=== PATIENT | male | born 1945 | race Caucasian/White ===

== ENCOUNTER 2017-05-14 11:28 | Inpatient (IN) | payer OTHER, MEDICAID ==
[~2017-05-14] VITALS: Ht 177.8 cm; Wt 70.3 kg
[~2017-05-14 11:28] MED LIST: GLU500 PO
[2017-05-14 12:07] VITALS: BP 135/76
[2017-05-14] MEDS ORDERED: NACL 0.9% 1,000 ML IV SCH (12:38)
--- NOTE | 2017-05-14 12:38 | NUR ---
[address] street in EDM - 05/14/17 at 1239 by BILLIE PATIENT TAKEN TO CHAIR/OUTSIDE TRIAGE. SEEN AND ASSESS BY DR. SENA.
[2017-05-14] MEDS ORDERED: ACETAMINOPHEN 325 MG TAB PO PRN (12:40)
[2017-05-14] MEDS ORDERED: HYDROcodone/APAP 7.5/325 MG 1 TAB PO PRN (12:40)
[2017-05-14] MEDS ORDERED: ONDANSETRON 4 MG/2 ML VIAL IVP PRN (12:40)
--- NOTE | 2017-05-14 12:45 | NUR ---
resting at this time with no s/s of distress pt hooked up to monitor vitals stable hob elevated call light in reach awating to see
[2017-05-14] MEDS ORDERED: MAG400 GT (13:28)
[2017-05-14] MEDS ORDERED: METO25TA GT (13:28)
[2017-05-14] MEDS ORDERED: DILT180C88 GT (13:28)
[2017-05-14] MEDS ORDERED: VITA1TAB44 GT (13:28)
[2017-05-14] MEDS ORDERED: LANTUS SUBQ (13:28)
[2017-05-14] MEDS ORDERED: LANS15EC28 GT (13:28)
[2017-05-14] MEDS ORDERED: FURO-572 GT (13:28)
[2017-05-14 14:08] LABS: BASOPHILS # (AUTO) 0.2 K/uL (0.00-0.22); EOSINOPHILS # (AUTO) 0.3 K/uL (0-0.4); HEMATOCRIT 36.5 % (36-52); HEMOGLOBIN 12.2 g/dL (12.0-18.0); LYMPHOCYTES # (AUTO) 1.9 K/uL (2.0-11.5); MEAN CORPUSCULAR HEMOGLOBIN 32 pg (27-31); MEAN CORPUSCULAR HGB CONC 33 g/dL (33-37); MEAN CORPUSCULAR VOLUME 97 fL (80-94); MONOCYTES # (AUTO) 0.6 K/uL (0.8-1.0); NEUTROPHILS # (AUTO) 2.4 K/uL (1.8-7.7); PLATELET COUNT (AUTO) 246 K/uL (140-450); RED BLOOD CELL COUNT(AUTO) 3.79 MIL/uL (4.20-6.10); RED CELL DISTRIBUTION WIDTH 12.5 % (11.6-13.7); WHITE BLOOD COUNT (AUTO) 5.4 K/uL (4.8-10.8)
[2017-05-14 14:32] LABS: PROTHROMBIN TIME 10.2 secs (10.8-13.4)
[2017-05-14 14:42] LABS: ANION GAP 10.2 (8-16); CARBON DIOXIDE 31.5 mmol/L (21-32); CREATININE 1.4 mg/dL (0.7-1.3); POTASSIUM 3.7 mmol/L (3.5-5.1)
--- NOTE | 2017-05-14 14:45 | NUR ---
pt transfered to floor tolerated well nurse at bedside report given pt with noted redness to left eye nurseinformed of pt having conjectivits per report no noted drops on may from [facility] angelic mcintosh at bedside was informed by nurse in er no noted orders at this time still awating urine.
--- NOTE | 2017-05-14 14:50 | NUR ---
Admitted from ER , with chief complaint of G-TUBE PULLED , 71 y/o ,Male, Cooperative, AAOX4, NO S/S OF ACUTE DISTRESS. PT DENIES PAIN AT THIS TIME.IV SITE PATENT AND INTACT. G-TUBE SITE RED WITH SEROUS MILD DRAINAGE. PT PT oriented to call light, bed, phone,television, bathroom, smoking policy, visiting hours, procedures, ID bracelet on. Belongings list checked. CALL LIGHT WITHIN REACH. SAFETY MEASURES ENSURED. CALL LIGHT WITHIN REACH. SAFETY MEASURES ENSURED. WILL CONTINUE TO MONITOR.
[2017-05-14 14:53] VITALS: BP 114/56
[2017-05-14] MEDS ORDERED: NITROGLYCERIN 0.4 MG TAB SL PRN (15:55)
[2017-05-14] MEDS ORDERED: INSULIN LISPRO SLIDING SCALE 100 UNITS/ML VIAL SUBQ PRN (15:55)
[2017-05-14] MEDS: BLOOD GLUCOSE MONITORING 1 DEV DEV FS SCH ×2 (17:14→21:00)
[2017-05-14] MEDS: DEXT 5% /NACL 0.9% 1,000 ML IV SCH (18:22)
[2017-05-14 18:44] LABS: CHOL/HDL RATIO 2.6 (1-4.5); FREE T4 (FREE THYROXINE) 1.17 ng/dL (0.76-1.46); MAGNESIUM 1.9 mg/dL (1.8-2.4); PHOSPHORUS 4.1 mg/dL (2.5-4.9); THYROID STIMULATING HORMONE 2.15 uIU/mL (0.34-3.74)
--- NOTE | 2017-05-14 20:10 | NUR ---
PT IN BED SHOWING NO S/S OF ACUTE DISTRESS. PT DENIES PAIN AT THIS TIME. IV SITE PATENT AND INTACT. G-TUBE SITE RED. PT oriented to call light, bed, phone,television, bathroom, smoking policy, visiting hours, procedures, ID bracelet on. Bed in low position.
[2017-05-14] MEDS: INSULIN LANTUS 100 UNITS/ML 10 ML VIAL SUBQ SCH (21:00)
[2017-05-14] MEDS ORDERED: DILTIAZEM HCL 180 MG GT SCH (21:00)
--- NOTE | 2017-05-14 22:05 | NUR ---
RECEIVED CRITICAL LAB FOR TROPONIN AT 2.36 COUNT IS TRENDING DOWN FROM PREVIOUS TROP AT 2.55
[2017-05-14] MEDS: DOCUSATE 100 MG/10 ML UDC PO SCH (22:12)
[2017-05-14] MEDS: DILTIAZEM 60 MG TAB GT SCH (22:13)
[2017-05-15 01:36] VITALS: BP 135/88
--- NOTE | 2017-05-15 01:39 | NUR ---
RECEIVED REPORT FROM DAY SHIFT RN. PATIENT A/O X1 IN BED RESTING. BED IN LOW POSITION, 2 RAILS UP, CALL LIGHT WITHIN REACH.
--- NOTE | 2017-05-15 01:41 | NUR ---
HELD PATIENTS LANTUS DOSE AT 2100 FOR 20 UNITS. BS AT 95.
--- NOTE | 2017-05-15 01:45 | NUR ---
PATIENT IS SLEEPING, NO S/S OF DISTRESS NOTED, RESPIRATION EVEN AND UNLABORED, CALL LIGHT WITHIN REACH, SAFETY MEASURE ENSURED, WILL CONTINUE TO MONITOR.
[2017-05-15] MEDS: LANSOPRAZOLE 30 MG CAPDR GT SCH (05:54)
[2017-05-15] MEDS ORDERED: LANSOPRAZOLE 20 MG GT SCH (06:30)
[2017-05-15 07:20] LABS: BASOPHILS # (AUTO) 0.1 K/uL (0.00-0.22); BASOPHILS % (AUTO) 2.2 % (0.0-2.0); EOSINOPHILS # (AUTO) 0.4 K/uL (0-0.4); EOSINOPHILS % (AUTO) 6.9 % (0.0-4.0); HEMATOCRIT 33.7 % (36-52); HEMOGLOBIN 11.7 g/dL (12.0-18.0); LYMPHOCYTES # (AUTO) 1.8 K/uL (2.0-11.5); LYMPHOCYTES % (AUTO) 33.3 % (20.5-51.1); MEAN CORPUSCULAR HEMOGLOBIN 35 pg (27-31); MEAN CORPUSCULAR HGB CONC 35 g/dL (33-37); MEAN CORPUSCULAR VOLUME 100 fL (80-94); MONOCYTES # (AUTO) 0.7 K/uL (0.8-1.0); MONOCYTES % (AUTO) 12.1 % (1.7-9.3); NEUTROPHILS # (AUTO) 2.5 K/uL (1.8-7.7); NEUTROPHILS % (AUTO) 45.5 % (42.2-75.2); PLATELET COUNT (AUTO) 203 K/uL (140-450); RED BLOOD CELL COUNT(AUTO) 3.38 MIL/uL (4.20-6.10); RED CELL DISTRIBUTION WIDTH 12.3 % (11.6-13.7); WHITE BLOOD COUNT (AUTO) 5.5 K/uL (4.8-10.8)
--- NOTE | 2017-05-15 07:24 | NUR ---
GAVE PATIENT REPORT AT BEDSIDE TO DAY NURSE, PATIENT ENDORSED IN STABLE CONDITION.
[2017-05-15] MEDS: BLOOD GLUCOSE MONITORING 1 DEV DEV FS SCH ×4 (07:30→21:00)
[2017-05-15 07:56] LABS: MAGNESIUM 1.8 mg/dL (1.8-2.4); PHOSPHORUS 3.6 mg/dL (2.5-4.9)
[2017-05-15 08:00] VITALS: BP 128/72
--- NOTE | 2017-05-15 08:00 | NUR ---
PT RECEIVED IN BED. NAD. SHIFT ASSESSMENT DONE AND DOCUMENTED. PLAN OF CARE DISCUSSED. PT HAS NO COMPLAINTS AT THIS TIME.
--- NOTE | 2017-05-15 08:48 | NUR ---
PATIENT HAS BEEN SCREENED AND CATEGORIZED HIGH NUTRITION RISK. PATIENT WILL BE SEEN WITHIN 1-2 DAYS OF ADMISSION. 05/14/18-05/15/[address]
[2017-05-15] MEDS: DILTIAZEM 60 MG TAB GT SCH ×2 (09:00→21:00)
[2017-05-15] MEDS: FUROSEMIDE 40 MG/5 ML ORAL SOL UDC GT SCH (09:00)
[2017-05-15] MEDS: DOCUSATE 100 MG/10 ML UDC PO SCH ×2 (09:00→21:00)
[2017-05-15] MEDS: METOPROLOL 50 MG TAB GT SCH (09:00)
[2017-05-15 09:33] LABS: ANION GAP 13.8 (8-16); CARBON DIOXIDE 27.6 mmol/L (21-32); CREATININE 1.3 mg/dL (0.7-1.3); POTASSIUM 3.4 mmol/L (3.5-5.1)
--- NOTE | 2017-05-15 12:42 | NUR ---
05/15/2017 RD INITIAL ASSESSMENT COMPLETED PLEASE REFER TO NUTRITION ASSESSMENT UNDER CARE ACTIVITY FOR ESTIMATED NUTRITIONAL NEEDS. CONTINUE NPO MEDICALLY APPROPRIATE INITIATE TUBE FEEDS ONCE G-TUBE REPLACED, CONSIDER: DIABETISOURCE AC @ 60 ML/HR. THIS WILL PROVIDE 1728 KCALS AND 86 GM PRO/DAY TO MEET 97% EST ENERGY AND 100% EST PRO NEEDS PER DAY. RD TO FOLLOW-UP IN 2-3 DAYS PATIENT IS HIGH RISK. GEMA CROFT RD Addendum: 05/15/17 at [address] SPOKE WITH YAW ROSAS, DISCUSSED RECOMMENDATION FOR TF ONCE PT NO LONGER NPO, RN WILL F/UP WITH DOCTOR ONCE DIET IS TO BE ADVANCED
[2017-05-15] MEDS: DEXT 5% /NACL 0.9% 1,000 ML IV SCH (14:12)
--- NOTE | 2017-05-15 14:30 | NUR ---
FAXED INITIAL REVIEW TO NIKKIE ARVIND [phone] PHONE ADEOLA [phone]
--- NOTE | 2017-05-15 15:42 | NUR ---
05/15/2017 RD INITIAL ASSESSMENT COMPLETED PLEASE REFER TO NUTRITION ASSESSMENT UNDER CARE ACTIVITY FOR ESTIMATED NUTRITIONAL NEEDS. CONTINUE NPO MEDICALLY APPROPRIATE INITIATE TUBE FEEDS ONCE G-TUBE REPLACED, CONSIDER: DIABETISOURCE AC @ 60 ML/HR. THIS WILL PROVIDE 1728 KCALS AND 86 GM PRO/DAY TO MEET 97% EST ENERGY AND 100% EST PRO NEEDS PER DAY. RD TO FOLLOW-UP IN 2-3 DAYS PATIENT IS HIGH RISK. GEMA MOSQUEDA RD
[2017-05-15 16:00] VITALS: BP 149/87
--- NOTE | 2017-05-15 16:00 | NUR ---
PT ABRUPTLY ASKED TO STOP PERFORMING ECHO DURING STUDY. NURSE ASKED IF ECHO CAN BE CONTINUED AND PT AGREED. DURING 2ND ATTEMPT PT ASKED TO STOP AGAIN. ECHO STUDY IS PARTIALLY COMPLETE.
--- NOTE | 2017-05-15 17:00 | NUR ---
PT BLOOD SUGAR IS 53. PT REMAINS ALERT AND ORIENTED TO NAME, PLACE AND SITUATION. ASYMPTOMATIC. WILL ADMINISTER D50 PER PROTOCOL.
[2017-05-15] MEDS: DEXTROSE 50% 50 ML SYR IVP PRN (17:04)
[2017-05-15] MEDS ORDERED: POTASSIUM CHL 30 MEQ/ D5-1/2NS 1,000 ML IV SCH (18:20)
--- NOTE | 2017-05-15 19:23 | NUR ---
PT RECEIVED IN BED. SHIFT ASSESSMENT DONE AND DOCUMENTED. PLAN OF CARE DISCUSSED. PT HAS NO COMPLAINTS AT THIS TIME.
[2017-05-15 20:13] VITALS: BP 140/77
[2017-05-15] MEDS: INSULIN LANTUS 100 UNITS/ML 10 ML VIAL SUBQ SCH (21:00)
--- NOTE | 2017-05-15 22:03 | NUR ---
2100 MEDICATION WITHHELD. PT IS NPO AND UNABLE TO SWALLOW. LANTUS HELD FOR BS OF 70
[2017-05-15] MEDS: MUPIROCIN 2% OINT 22 GM TUBE TP SCH (22:08)
[2017-05-15] MEDS: CHLORHEXADINE GLUC 2% CLOTH TP SCH (22:16)
--- NOTE | 2017-05-15 22:52 | NUR ---
PT TURNED AND REPOSITIONED. NO S/S OF DISTRESSED, STATES HE IS WELL AND COMFORTABLE.
--- NOTE | 2017-05-15 23:58 | NUR ---
PATIENT ASLEEP IN BED. NO S/S OF DISTRESS NOTED
--- NOTE | 2017-05-16 02:41 | NUR ---
PT ATTEMPTED TO GET OUT OF BED. gAVE BED BATH AND REPOSITIONED TO COMFORTABLE POSITION. WILL CONTINUE TO MONITOR PATIENT. VERBALIZED NO S/S OF DISCOMFORT.
[2017-05-16] MEDS: LANSOPRAZOLE 30 MG CAPDR GT SCH (05:48)
[2017-05-16] MEDS: BLOOD GLUCOSE MONITORING 1 DEV DEV FS SCH ×4 (06:33→20:43)
[2017-05-16] MEDS: DEXTROSE 50% 50 ML SYR IVP PRN (06:36)
[2017-05-16 07:10] LABS: ANION GAP 13.6 (8-16); CARBON DIOXIDE 29.6 mmol/L (21-32); CREATININE 1.2 mg/dL (0.7-1.3); POTASSIUM 3.2 mmol/L (3.5-5.1)
--- NOTE | 2017-05-16 07:10 | NUR ---
ASSUMED CONTINUITY OF CARE. NO SIGNS AND SYMPTOMS OF ACUTE DISTRESS NOTED. INITIAL ASSESSMENT DONE. PT. NON-COMPLIANT AND AGGRESSIVE AT TIMES. REFUSED BLOOD SUGAR CHECK. EXPLAINED DIAGNOSIS, PLAN OF CARE, PAIN MANAGEMENT TEACHING, CONTACT ISOLATION PRECAUTION, USE OF CALL LIGHT/BED/TV/BATHROOM. VERBALIZED UNDERSTANDING. FALL PRECAUTION APPLIED. CALL LIGHT WITHIN REACH.
--- NOTE | 2017-05-16 07:20 | NUR ---
PT BS 57 GAVE D50. PT WAS VERY AGITATED AND COMBATIVE. 3 NURSES ASSISTED IN HOLDING PT DOWN HE WAS VERY CONFUSED AND AGITATED. ATTEMPTED TWICE TO RECHECK BS AND PATIENT REMAINS COMBATIVE AND REFUSING. CHARGE NURSE AND DAY SHIFT NURSE ENDORSED TO FOLLOW UP.
--- NOTE | 2017-05-16 07:22 | NUR ---
GAVE PATIENT REPORT AT BEDSIDE TO DAY NURSE, PATIENT ENDORSED WITHOUT ANY S/S OF DISCOMFORT. NURSE TO FOLLOW UP BS RECHECK
--- NOTE | 2017-05-16 07:25 | NUR ---
Patient's Plan of Care was discussed and reviewed with REAL PROPERTY APPRAISER: THUY.
--- NOTE | 2017-05-16 07:45 | NUR ---
NON-COMPLIANT, REFUSED BLOOD SUGAR CHECK. AWAKE, ALERT, AND ORIENTED X2. NO ACUTE DISTRESS NOTED. INFORMED CHARGE NURSE PENNY FLORES.
[2017-05-16 08:00] VITALS: BP 176/92
--- NOTE | 2017-05-16 08:45 | NUR ---
DR. HEBERT LAN CALLED BACK, INFORMED OF PT. BP 176/92 AT 0800, K 3.2, BS 57 AND WAS GIVEN D50 BUT REFUSED TO RE-CHECK BLOOD SUGAR, AND REFUSED TO CHECK AGAIN VITALS SIGN. INFORMED CHARGE NURSE PENNY FLORES.
[2017-05-16] MEDS: METOPROLOL 50 MG TAB GT SCH (08:50)
[2017-05-16] MEDS: DILTIAZEM 60 MG TAB GT SCH ×2 (08:50→20:44)
[2017-05-16] MEDS: FUROSEMIDE 40 MG/5 ML ORAL SOL UDC GT SCH (08:50)
[2017-05-16] MEDS: DOCUSATE 100 MG/10 ML UDC PO SCH ×2 (08:51→20:44)
[2017-05-16] MEDS ORDERED: LABETALOL 100 MG/20 ML VIAL IVP SCH ×2 (08:53→12:41)
--- NOTE | 2017-05-16 08:55 | NUR ---
CALLED PHARMACY AND ASKED FOR LABETALOL 10 MG IVP FOR HIGH BP. PER PHARMACY THEY WILL SEND MEDS LATER.
[2017-05-16] MEDS ORDERED: POTASSIUM CHLORIDE IV SCH (09:00)
[2017-05-16] MEDS ORDERED: NACL 0.9% IV SCH (09:00)
[2017-05-16] MEDS ORDERED: LIDOCAINE IV SCH (09:00)
--- NOTE | 2017-05-16 10:38 | NUR ---
STILL NON-COMPLIANT. REFUSED CHECK OF VS. NO ACUTE DISTRESS NOTED.
--- NOTE | 2017-05-16 11:50 | NUR ---
DR. HELM CAME, REVIEWED PT. CHART AND SEEN PT.. INFORMED DR. HELM ABOUT PT. LATEST BS 61, AND BP AT 0800 176/92.
[2017-05-16 12:00] VITALS: BP 166/86
[2017-05-16] MEDS: POTASSIUM CHL 20 MEQ / DEXT 5% 1,000 ML IV SCH (12:12)
--- NOTE | 2017-05-16 12:23 | NUR ---
CALLED LAN DEVI AND INFORMED OF PT. BP 166/86 AT 1200. GOT T.O., READ BACK AND VERIFIED. INFORMED CHARGE NURSE PENNY FLORES.
--- NOTE | 2017-05-16 12:45 | NUR ---
LAN DEVI CAME, SEEN PT. AND REVIEWED PT. CHART.
--- NOTE | 2017-05-16 13:05 | NUR ---
I call [facility] (SNF) spoke to RN Clementine from admissions about Patient's current status, gather and confirm his information. Per Clementine staff Patient is on a 7 day skilled bed hold and he is able to returned to facility when he is stable and ready to discharge from [facility]. I confirm Patient's sister information, thank Clementine for her information and ended the call.
--- NOTE | 2017-05-16 13:47 | NUR ---
WENT TO RADIOLOGY VIA [facility]. IN STABLE CONDITION.
--- NOTE | 2017-05-16 14:17 | NUR ---
BACK FROM RADIOLOGY VIA [facility]URNEY. IN STABLE CONDITION. KEEP COMFORTABLE ON BED.
--- NOTE | 2017-05-16 14:23 | NUR ---
CALLED DR. HELM AND INFORMED THAT PT. REFUSED XR ESOPHAGEAL SPEECH EVAL PER SPEECH THERAPIST. GOT T.O. OF EGD WITH PEG PLACEMENT, READ BACK AND VERIFIED. INFORMED CHARGE NURSE PENNY FLORES.
--- NOTE | 2017-05-16 14:39 | NUR ---
DEPUTY CITY CLERK note (MBSS completed as far as pt willing to participate) [id number]. Modified Barium Swallow Study completed as far as pt willing to participate, please see evaluation report for details. DEPUTY CITY CLERK provided pt with education regarding purpose of evaluation. Pt unable to demonstrate ability to benefit from education provided. Pt became verbally abusive and refused participation in MBSS after 1/2 teaspoon of thin barium. Recommend: 1) Strict NPO (oral cares only) 2) consider alternative method(s) of nutrition/hydration/medication vs hospice/comfort measures, as appropriate 3) no further DEPUTY CITY CLERK intervention indicated at this time. Physician may reorder if pt becomes compliant and willing to participate, as appropriate. G-codes: [id number] [facility] NOMS level 2. PVE for d/w set up and charger and RN (Ry) prior to and d/w RN (Ry) following MBSS completion.
[2017-05-16] MEDS ORDERED: LABETALOL 100 MG/20 ML VIAL IVP PRN (14:40)
--- NOTE | 2017-05-16 14:40 | NUR ---
RAMIRO DEVI CAME, INFORMED PT. BP AT 0800 176/92, 1200 166/86, AND AT BP NOW 166/83, AND LATEST LABETALOL 10 MG. IVP ADMINISTRATION WAS 1326. PER RAMIRO DEVI JUST RE-CHECK AT 1600 AND GIVE PRN MEDICINE. INFORMED CHARGE NURSE PENNY FLORES. ALSO INFORMED RAMIRO DEVI THAT DR. HELM ORDERED EGD WITH PEG PLACEMENT.
--- NOTE | 2017-05-16 14:42 | NUR ---
BS 69. NO ACUTE DISTRESS NOTED. A & O X2. INFORMED CHARGE NURSE PENNY FLORES.
--- NOTE | 2017-05-16 15:00 | NUR ---
CALLED PT. -LA LUU AT REGARDING TELEPHONE CONSENT FOR EGD WITH PEG PLACEMENT THAT WAS ORDERED BY DR. HELM. LEFT MESSAGE AND CALL BACK NUMBER. INFORMED CHARGE NURSE PENNY FLORES.
--- NOTE | 2017-05-16 15:03 | NUR ---
Clinical concurrent review faxed to [facility] at [phone]
--- NOTE | 2017-05-16 15:38 | NUR ---
CALLED PT. -JACKELYN LUU AT REGARDING TELEPHONE CONSENT FOR EGD WITH PEG PLACEMENT THAT WAS ORDERED BY DR. HELM. LEFT MESSAGE AND CALL BACK NUMBER. INFORMED CHARGE NURSE PENNY FLORES.
[2017-05-16 16:00] VITALS: BP 167/111
--- NOTE | 2017-05-16 16:24 | NUR ---
CALLED LAN DEVI AT , INFORMED DR. HELM ORDER OF EGD WITH PEG PLACEMENT DUE TO PT. REFUSAL OF XR ESOPHAGEAL SPEECH EVAL, ALSO INFORMED OF LATEST BP 167/111 AT 1600 AND WILL GIVE PRN MEDICINE. NO ORDER RECEIVED.
--- NOTE | 2017-05-16 16:44 | NUR ---
CALLED AGAIN PT. SISTER LA LUU AT [phone] REGARDING TELEPHONE CONSENT FOR EGD WITH PEG PLACEMENT ORDERED BY DR. HELM. LEFT MESSAGE AND CALL BACK NUMBER. INFORMED CHARGE NURSE PENNY FLORES.
--- NOTE | 2017-05-16 16:58 | NUR ---
PT. SISTER -JUSJACKELYN CALLED BACK, INFORMED OF PT. EGD WITH PEG PLACEMENT THAT WAS ORDERED BY DR. HELM AND ASKED FOR TELEPHONE CONSENT. PT. SISTER REFUSED TO GIVE TELEPHONE CONSENT FOR PT. PROCEDURE. INFORMED CHARGE NURSE PENNY FLORES
--- NOTE | 2017-05-16 17:33 | NUR ---
IV ON LEFT HAND #22 ACCIDENTALLY PULLED OUT. INSERTED IV ON RIGHT FOREARM WITH GAUGE #22. TOLERATED WELL. NO C/O PAIN.
--- NOTE | 2017-05-16 17:35 | NUR ---
CALLED DR. HELM AT REGARDING PT. REFUSAL TO SIGN CONSENT AND PT. SISTER -JACKELYN LUU REFUSAL TO SIGN TELEPHONE CONSENT FOR EGD WITH PEG PLACEMENT. LEFT MESSAGE AND CALL BACK NUMBER. INFORMED CHARGE NURSE PENNY FLORES.
[2017-05-16 17:39] VITALS: BP 162/86
--- NOTE | 2017-05-16 17:55 | NUR ---
CHARGE NURSE CALLED LAN DEVI AND ASKED INCREASE RATE OF IVF.
[2017-05-16] MEDS: MUPIROCIN 2% OINT 22 GM TUBE TP SCH (18:40)
[2017-05-16] MEDS: CHLORHEXADINE GLUC 2% CLOTH TP SCH (18:40)
--- NOTE | 2017-05-16 19:18 | NUR ---
BEDSIDE REPORT GIVEN TO KATIE FLORES. IVF INFUSING WELL. IN STABLE CONDITION. ALSO ENDORSED ABOUT PT. REFUSAL TO SIGN CONSENT FOR EGD WITH PEG PLACEMENT ORDERED BY DR. HELM.
--- NOTE | 2017-05-16 19:19 | NUR ---
RECEIVED BEDSIDE REPORT FROM DAY SHIFT NURSE MARU CADE, PT STABLE, NO DISTRESS NOTED, IV TO R FA 22G RUNNING D5 KCL 20MEQ @100ML/HR, INFUSING WELL, PT ON ROOM AIR NO SOB, INITIAL ASSESSMENT DONE, ALL SAFETY PRECAUTION MET, WILL CONTINUE TO MONITOR.
--- NOTE | 2017-05-16 19:25 | NUR ---
BEDSIDE REPORT GIVEN TO JESUS FLORES. IN STABLE CONDITION. Addendum: 05/16/17 at 1926 by Himanshu Gould LVN WRONG ENTRY: ENTERED AT WRONG PT..
--- NOTE | 2017-05-16 19:58 | NUR ---
CHECKED PT BP, 172/89, HR 74, CALLED DR. ANUP Barriga REGARDING PT BP, STATED TO TRANSFER PT TO TELEMETRY, AND TO ORDER HYDRALAZINE 10MG IVP Q4 HR PRN SBP >150. WILL PUT IN ORDERS AND CONTINUE WITH ORDERS.
[2017-05-16 20:00] VITALS: BP 172/89
[2017-05-16] MEDS: hydrALAZINE 20 MG/ML VIAL IVP PRN (20:40)
--- NOTE | 2017-05-16 20:40 | NUR ---
DUE MEDICATION WAS NOT GIVEN DUE TO PT NPO STATUS AND NO GTUBE, HYDRALAZINE GIVEN PER ORDER BP 172/89, PT TOLERATED WELL, WILL RECHECK PT BP IN ONE HOUR CHECKED, PT BLOOD SUGAR OF 79. PT STABLE, NO DISTRESS NOTED, WILL CONTINUE TO MONITOR.
[2017-05-16] MEDS: INSULIN LANTUS 100 UNITS/ML 10 ML VIAL SUBQ SCH (20:45)
--- NOTE | 2017-05-16 21:40 | NUR ---
RECHECKED PT BP, PT BP NOW 157/91. PT STABLE, NO DISTRESS NOTED, NO SOB. WILL CONTINUE TO MONITOR.
[2017-05-17] VITALS (7 sets, daily range): BP systolic 109–169; BP diastolic 64–90
[2017-05-17] MEDS: hydrALAZINE 20 MG/ML VIAL IVP PRN ×2 (00:40→09:45)
--- NOTE | 2017-05-17 00:40 | NUR ---
PT BP 161/88 HR 89, HYDRALAZINE GIVEN PER MD ORDER, PT STABLE, NO DISTRESS NOTED, WILL RECHECK BP IN ONE HOUR. CALL LIGHT WITHIN REACH, WILL CONTINUE TO MONITOR.
[2017-05-17] MEDS ORDERED: MORPHINE SULFATE 2 MG/ML SYR IVP PRN (00:50)
--- NOTE | 2017-05-17 00:52 | NUR ---
CALLED DR. ANUP Marcus, REGARDING PT C/O PAIN WHOLE BODY ACHE, 12/26. STATED TO ORDER MORPHING 2MG, Q6HR, PRN PAIN. WILL PUT IN ORDER AND CONTINUE WITH ORDERS.
--- NOTE | 2017-05-17 01:14 | NUR ---
ASKED PT IF HE IS STILL IN PAIN AND IF HE WANTS PAIN MEDICATION, PT STATED HE DOES NOT WANT MORPHINE AND SAID, "DO YOU WANT TO SUCK MY ANA." PT STABLE, NO DISTRESS NOTED, CALL LIGHT WITHIN REACH.
--- NOTE | 2017-05-17 01:40 | NUR ---
RECHECKED PT BP, PT BP 140/80 HR 96, PT STABLE, NO DISTRESS NOTED, SLEEPING,EASY TO AROUSE, CALL LIGHT WITHIN REACH, WILL CONTINUE TO MONITOR.
[2017-05-17] MEDS: POTASSIUM CHL 20 MEQ / DEXT 5% 1,000 ML IV SCH ×3 (02:28→21:59)
--- NOTE | 2017-05-17 03:10 | NUR ---
PT SLEEPING, NO DISTRESS NOTED, CALL LIGHT WITHIN REACH, WILL CONTINUE TO MONITOR.
[2017-05-17] MEDS: BLOOD GLUCOSE MONITORING 1 DEV DEV FS SCH ×4 (05:49→21:42)
[2017-05-17] MEDS: LANSOPRAZOLE 30 MG CAPDR GT SCH (05:50)
[2017-05-17 06:47] LABS: ANION GAP 13.9 (8-16); CREATININE 1.2 mg/dL (0.7-1.3); POTASSIUM 3.9 mmol/L (3.5-5.1)
[2017-05-17 06:59] LABS: BASOPHILS # (AUTO) 0.2 K/uL (0.00-0.22); BASOPHILS % (AUTO) 3.6 % (0.0-2.0); EOSINOPHILS # (AUTO) 0.3 K/uL (0-0.4); EOSINOPHILS % (AUTO) 6.1 % (0.0-4.0); HEMATOCRIT 33.7 % (36-52); HEMOGLOBIN 11.6 g/dL (12.0-18.0); LYMPHOCYTES # (AUTO) 1.9 K/uL (2.0-11.5); LYMPHOCYTES % (AUTO) 34.9 % (20.5-51.1); MEAN CORPUSCULAR HEMOGLOBIN 34 pg (27-31); MEAN CORPUSCULAR HGB CONC 34 g/dL (33-37); MEAN CORPUSCULAR VOLUME 98 fL (80-94); MONOCYTES # (AUTO) 0.6 K/uL (0.8-1.0); MONOCYTES % (AUTO) 10.5 % (1.7-9.3); NEUTROPHILS # (AUTO) 2.3 K/uL (1.8-7.7); NEUTROPHILS % (AUTO) 44.9 % (42.2-75.2); PLATELET COUNT (AUTO) 239 K/uL (140-450); RED BLOOD CELL COUNT(AUTO) 3.43 MIL/uL (4.20-6.10); RED CELL DISTRIBUTION WIDTH 12.6 % (11.6-13.7); WHITE BLOOD COUNT (AUTO) 5.3 K/uL (4.8-10.8)
--- NOTE | 2017-05-17 07:23 | NUR ---
ENDORSED PLAN OF CARE TO DAY SHIFT NURSE CHARLIE ROSAS, PT STABLE, NO DISTRESS NOTED, CALL LIGHT WITHIN REACH.
--- NOTE | 2017-05-17 07:24 | NUR ---
PATIENT LYING IN BED SLEEPING, AROUSABLE BY VOICE. NO DISTRESS NOTED. DENIES ANY PAIN. RESPIRATIONS EVEN, UNLABORED, ON ROOM AIR. AAOX4, CALM, COOPERATIVE, SKIN COLOR APPROPRIATE TO ETHNICITY, WARM TO TOUCH. SKIN IS INTACT. HAS LEFT UPPER QUADRANT PEG STOMA FROM PREVIOUS GTUBE THAT PATIENT PULLED OUT. NO S/S OF INFECTION. IV SITE INTACT, PATENT, AND INFUSING IVF PER ORDERS. LUNGS CTA ON ALL LOBES. ABDOMEN SOFT, NON-DISTENDED. PATIENT WILLING TO SIGN CONSENT FOR GTUBE PLACEMENT TODAY AND IS AAOX4. WILL NOTIFY DR. HELM. REVIEWED PLAN OF CARE WITH PATIENT. PATIENT VERBALIZED UNDERSTANDING. SAFETY MEASURES IN PLACE, CALL LIGHT WITHIN REACH. WILL CONTINUE TO MONITOR.
--- NOTE | 2017-05-17 08:23 | NUR ---
CALLED DR. HELM CELLPHONE TO INFORM HIM REGARDING PATIENT WISHES TO PROCEED WITH GTUBE PLACEMENT TODAY. PATIENT REFUSED YESTERDAY PER NURSE REPORTS, HOWEVER, HE IS ALRIGHT WITH IT TODAY AND SIGNED THE CONSENT FOR GTUBE PLACEMENT. PATIENT IS AAOX4, EXPLAINED PROCEDURE TO PATIENT, PATIENT VERBALIZED UNDERSTANDING OF PROCEDURE OF GTUBE PLACEMENT AND WISHES TO PROCEED. SAFETY MEASURES IN PLACE, CALL LIGHT WITHIN REACH. WILL CONTINUE TO MONITOR.
[2017-05-17] MEDS: METOPROLOL 50 MG TAB GT SCH (09:00)
[2017-05-17] MEDS: DILTIAZEM 60 MG TAB GT SCH ×2 (09:00→21:18)
[2017-05-17] MEDS: FUROSEMIDE 40 MG/5 ML ORAL SOL UDC GT SCH (09:00)
[2017-05-17] MEDS: DOCUSATE 100 MG/10 ML UDC PO SCH ×2 (09:00→21:17)
--- NOTE | 2017-05-17 09:49 | NUR ---
PATIENT LYING IN BED SLEEPING, AROUSABLE BY VOICE. NO DISTRESS NOTED. DENIES ANY PAIN. HYDRALAZINE GIVEN PER MD ORDERS DUE TO HIGH BP. OTHER SCHEDULED MEDICATIONS NOT GIVEN DUE TO NO GTUBE IN PLACE AND PATIENT HAS NO SWALLOW EVAL YET. SAFETY MEASURES IN PLACE, CALL LIGHT WITHIN REACH. WILL CONTINUE TO MONITOR.
[2017-05-17] MEDS ORDERED: diphenhydrAMINE 50 MG/ML VIAL ONE (10:05)
[2017-05-17] MEDS ORDERED: fentaNYL 0.05 MG/ML VIAL ONE (10:05)
[2017-05-17] MEDS ORDERED: MIDAZOLAM 2 MG/2 ML VIAL ONE (10:05)
--- NOTE | 2017-05-17 12:50 | NUR ---
OR NURSES ON UNIT TO TAKE PATIENT OFF TO OR FOR EGD WITH PEG PLACEMENT. WILL CONTINUE TO MONITOR WHEN PATIENT RETURNS.
[2017-05-17] MEDS ORDERED: ceFAZolin 1,000 MG VIAL ONE (13:20)
[2017-05-17] MEDS ORDERED: fentaNYL 0.05 MG/ML VIAL IVP ONE (14:10)
[2017-05-17] MEDS ORDERED: MIDAZOLAM 2 MG/2 ML VIAL IV ONE (14:10)
--- NOTE | 2017-05-17 14:15 | NUR ---
PATIENT BACK ON MST UNIT FROM OR. PATIENT IN STABLE CONDITION, SLEEPING DUE TO ANESTHESIA. V/S ARE STABLE. SAFETY MEASURES IN PLACE, CALL LIGHT WITHIN REACH. WILL CONTINUE TO MONITOR.
--- NOTE | 2017-05-17 14:36 | NUR ---
CM NOTE CONCURRENT REVIEW FAXED TO / FAX# [phone], ATTN: ADEOLA #[phone].
--- NOTE | 2017-05-17 16:19 | NUR ---
PATIENT LYING IN BED SLEEPING, AROUSABLE BY VOICE. NO DISTRESS NOTED. DENIES ANY PAIN. ASSISTED BOX SEALING MACHINE CATCHER IN REPOSITIONING PATIENT. CONDITION UNCHANGED. WILL CONTINUE TO MONITOR.
--- NOTE | 2017-05-17 17:00 | NUR ---
PAGED Amrit DEVI REGARDING PATIENT'S GTUBE FEEDING. AWAITING FOR CALL BACK.
[2017-05-17] MEDS: CHLORHEXADINE GLUC 2% CLOTH TP SCH (18:08)
[2017-05-17] MEDS: MUPIROCIN 2% OINT 22 GM TUBE TP SCH (18:08)
--- NOTE | 2017-05-17 18:09 | NUR ---
PATIENT LYING IN BED SLEEPING, AROUSABLE BY VOICE. NO DISTRESS NOTED. CONDITION UNCHANGED. SCHEDULED MEDICATIONS DUE GIVEN. SAFETY MEASURES IN PLACE, CALL LIGHT WITHIN REACH. WILL CONTINUE TO MONITOR.
--- NOTE | 2017-05-17 18:20 | NUR ---
NO CALL BACK FROM Rainer DEVI CALLED Toni RODARTE REGARDING GTUBE FEEDING ORDERS FOR THE PATIENT. AWAITING FOR CALL BACK. WILL CONTINUE TO MONITOR.
--- NOTE | 2017-05-17 19:00 | NUR ---
NO CALL BACK FROM DR. HELM OR Rainer HEBERT WILL ENDORSE TO PM NURSE.
--- NOTE | 2017-05-17 19:25 | NUR ---
GAVE REPORT TO SKEINS YARN EXAMINER NURSE FOR CONTINUITY OF CARE. PATIENT IN STABLE CONDITION.
--- NOTE | 2017-05-17 19:26 | NUR ---
RECEIVED BEDSIDE REPORT FROM DAY SHIFT NURSE CHARLIE RN, PT STABLE, NO DISTRESS NOTED IV TO R FA 22 G RUNNING D5 KCL 20MEQ @ 100 ML/HR, PT AAOX4, G TUBE IN PLACE, INITIAL ASSESSMENT DONE, ALL SAFETY PRECAUTION MET, WILL CONTINUE TO MONITOR.
--- NOTE | 2017-05-17 20:24 | NUR ---
CALLED DR. HELM X4 CALLS WENT TO VOICEMAIL, LEFT VOICE MAIL FOR DR. HELM TO CALL BACK, CALLED Rainer DEVI SPOKE TO Rainer DEVI REGARDING PT TUBE FEEDING, STATED TO START PT TUBE FEEDING WHAT PT WAS GETTING IN [facility] DIABETIC SOURCE 55ML/HR WITH H2O 125ML Q8H. WILL PUT IN ORDERS AND CONTINUE WITH ORDERS.
--- NOTE | 2017-05-17 21:40 | NUR ---
TUBE FEEDING STARTED DIABETASOURCE 55ML/HR WITH H2O 125ML Q8H, PT TOLERATED WELL, NO DISTRESS NOTED, CALL LIGHT WITHIN REACH, WILL CONTINUE TO MONITOR. WILL RECHECK RESIDUAL IN 1 HR.
[2017-05-17] MEDS: INSULIN LANTUS 100 UNITS/ML 10 ML VIAL SUBQ SCH (21:44)
--- NOTE | 2017-05-17 21:44 | NUR ---
DUE MEDICATION GIVEN, PT STABLE, NO DISTRESS NOTED, CALL LIGHT WITHIN REACH, WILL CONTINUE TO MONITOR.
--- NOTE | 2017-05-17 22:40 | NUR ---
RECHECKED PT RESIDUAL, 30ML, PT TOLERATED FEEDING WELL, WILL CONTINUE FEEDING, PT STABLE, NO DISTRESS NOTED, CALL LIGHT WITHIN REACH, WILL CONTINUE TO MONITOR.
--- NOTE | 2017-05-17 22:40 | NUR ---
TUBE FEEDING STARTED DIABETASOURCE 55ML/HR WITH H2O 125ML Q8H, PT TOLERATED WELL, NO DISTRESS NOTED, CALL LIGHT WITHIN REACH, WILL CONTINUE TO MONITOR. WILL RECHECK RESIDUAL IN 1 HR. Addendum: 05/17/17 at 2309 by Maryan Sims RN WORNG TIME
--- NOTE | 2017-05-17 23:10 | NUR ---
CHANGED AND REPOSITIONED PT, PT SOILED LINEN, PT TOLERATED WELL, CLEANED AND CHANGED, PT STABLE, NO DISTRESS NOTED, CALL LIGHT WITHIN REACH.
[2017-05-18] VITALS: BP 114/61
--- NOTE | 2017-05-18 00:20 | NUR ---
CHECKED ON PT, SLEEPING, NO DISTRESS NOTED, CALL LIGHT WITHIN REACH, WILL CONTINUE TO MONITOR.
--- NOTE | 2017-05-18 02:26 | NUR ---
CHECKED ON PT, PT AWAKE, CALM ON BED, NO DISTRESS NOTED, CALL LIGHT WITHIN REACH, WILL CONTINUE TO MONITOR.
[2017-05-18 04:00] VITALS: BP 116/57
--- NOTE | 2017-05-18 04:41 | NUR ---
FOUND SKIN TEAR ON THE L VALADEZ AND NON BLANCHABLE SPOT ON THE R KNEE, TOOK PICTURE, PT STATED THAT HE HAD THE INJURY AND SKIN TEAR PRIOR TO COMING TO THE HOSPITAL, HE STATED THAT HE FELL AT [facility].
[2017-05-18] MEDS: LANSOPRAZOLE 30 MG CAPDR GT SCH ×2 (05:38→05:47)
[2017-05-18] MEDS: BLOOD GLUCOSE MONITORING 1 DEV DEV FS SCH ×4 (05:42→20:17)
--- NOTE | 2017-05-18 05:48 | NUR ---
PT REFUSED PREVACID AFTER PILL WAS MIXED, PT STATED THAT THERE IS TOO MUCH FLUID, THE ORDER IS TO MIX WITH 30ML OF APPLE JUICE.
--- NOTE | 2017-05-18 07:29 | NUR ---
RECEIVED BEDSIDE REPORT FROM NIGHTSHIFT NURSE AT BEDSIDE. PATIENT IS ASLEEP BUT AROUSABLE AT THIS TIME. PATIENT IS ALERT AND ORIENTED X3. PATIENT BREATHING IS WITHIN NORMAL LIMITS AND NO COMPLAINTS OF PAIN. PATIENT HAS A G-TUBE IN PLACE ON ABDOMEN. PATIENT ON FEEDING 55ML / HR DIABETASOURCE. CONTACT AND FALL SIGNS IN PLACE IN PATIENT'S ROOM. CALL LIGHT WITHIN REACH. WILL CONTINUE TO MONITOR PATIENT.
--- NOTE | 2017-05-18 07:29 | NUR ---
ENDORSED PT TO DAY SHIFT NURSE SANTOS ROSAS, PT STABLE, NO DISTRESS NOTED, CALL LIGHT WITHIN REACH. Addendum: 05/18/17 at 0737 by Maryan Sims RN * DAY SHIFT NURSE ELVIRA ROSAS
[2017-05-18] MEDS: POTASSIUM CHL 20 MEQ / DEXT 5% 1,000 ML IV SCH ×2 (07:59→18:51)
[2017-05-18 08:00] VITALS: BP 145/79
[2017-05-18] MEDS: FUROSEMIDE 40 MG/5 ML ORAL SOL UDC GT SCH (09:00)
[2017-05-18] MEDS: DILTIAZEM 60 MG TAB GT SCH ×2 (09:00→20:27)
[2017-05-18] MEDS: DOCUSATE 100 MG/10 ML UDC PO SCH ×2 (09:00→20:28)
[2017-05-18] MEDS: METOPROLOL 50 MG TAB GT SCH (09:00)
--- NOTE | 2017-05-18 10:15 | NUR ---
OFFERED 0900 AM MEDS WHICH INCLUDE BLOOD PRESSURE MEDICATIONS AND LASIX. PATIENT REFUSED EACH MEDICATION. EDUCATION WAS GIVEN ON EACH MEDICATION AND HOW IT AFFECTS HIS BLOOD PRESSURE. PATIENT STATES, "I'VE BEEN URINATING TOO MUCH. I DON'T WANT THE MEDICATION". WILL CONTINUE TO MONITOR PATIENT.
--- NOTE | 2017-05-18 11:14 | NUR ---
OFFERED 0900 MEDICATIONS FOR BLOOD PRESSURE TO PATIENT AGAIN. PATIENT IS AGITATED AND DOES NOT WANT THE MEDICATIONS. BLOOD PRESSURE IS AT 150/83, 84 AT THIS TIME. WILL CONTINUE TO MONITOR PATIENT.
[2017-05-18 12:00] VITALS: BP 153/82
--- NOTE | 2017-05-18 12:00 | NUR ---
NOT ABLE TO ASSESS PATIENTS TEMPERATURE AND O2 SATURATION. ABLE TO ASSESS BLOOD PRESSURE AND PULSE. PATIENT IS AGITATED AT THIS TIME. WILL CONTINUE TO MONITOR PATIENT.
--- NOTE | 2017-05-18 12:38 | NUR ---
RECEIVED ORDER FOR PATIENT TO GO BACK TO [facility]. CALLED AND SPOKE WITH TIM. I INFORMED HER THAT PATIENT WAS MRSA NARES. FAXED CLINICALS TO HER AT [phone]
--- NOTE | 2017-05-18 12:50 | NUR ---
PATIENT'S SISTER CONVINCED PATIENT TO TAKE MEDICATIONS. PATIENT SISTER PRESENT IN ROOM BUT MAKING HER WAY OUT. PREPARED 0900 MEDICATIONS FOR PATIENT. PATIENT REFUSED MEDICATIONS SOON SISTER LEFT. WILL CONTINUE TO MONITOR PATIENT.
--- NOTE | 2017-05-18 13:03 | NUR ---
FAXED CONCURRET REVIEW TO [phone] PHONE [phone] DOMINIC PHONE FOR ROJELIO [phone] 2013. I INFORMED ROJELIO THAT I HAD AN ORDER FOR PATIENT TO GO BACK TO [facility]. I SAID I NEEDED AN AUTH FOR THE SNF AND FOR TRANSPORT. SHE SAID TO FAX REVIEW AND ORDER TO [phone]. FAXED REVIEW.
--- NOTE | 2017-05-18 14:53 | NUR ---
CONTINUE CURRENT TUBE FEEDS: DIABETISOURCE AC @ 55 ML/HR. THIS IS PROVIDING 1584 KCALS AND 79 GM PRO/DAY. TO MEET 90% EST KCAL AND 100% EST PRO NEEDS/DAY --ADEQUATE RD TO FOLLOW-UP IN 2-3 DAYS PATIENT IS HIGH RISK. GEMA MOSQUEDA, RD
--- NOTE | 2017-05-18 16:29 | NUR ---
CALLED [facility]EL[facility] AND SPOKE WITH ADEOLA ANDINO,[phone]. I INFORMED HER THAT [facility] COULD NOT TAKE THE PATIENT UNTIL HE RECEIVED THE FULL DOSE OF MEDICATION FOR MRSA OF [place]AR[place]. SHE GAVE ME THE AUTH FOR [facility] WHEN HE IS DISCHARGED. AUTH IS [id number] ANC AUTH FOR [facility] IS [id number]. I CALLED [facility] AND SPOKE WITH TIM AND GAVE HER THE AUTH NUMBER. SHE SAID SHE WAS TOLD BY HER DON THAT THEY COULD NOT TAKE THE PATIENT UNTIL THE TREATMENT FOR MRSA OF [place]AR[place] WAS COMPLETE. ALSO, COULD NOT TAKE A COLONIZED ORDER FROM THE PHYSICIAN, ONLY IF IT WAS FROM THE LAB. CHRISTEL ROSASFISHER PURSE SEINE DIRECTOR AWARE.
--- NOTE | 2017-05-18 16:30 | NUR ---
PATIENT REFUSED BLOOD SUGAR CHECK. PATIENT BREATHING IS WITHIN NORMAL LIMITS. PATIENT SHOWS NO SIGNS OF PAIN. WILL CONTINUE TO MONITOR PATIENT.
--- NOTE | 2017-05-18 16:37 | NUR ---
WHEN PATIENT READY FOR TRANSFER TO [facility] AFTER FULL TREATMENT FOR MRSA, THE PATIENT CAN GO TO ROOM 30A UNDER DR. Amrit HEBERT.
[2017-05-18] MEDS: MUPIROCIN 2% OINT 22 GM TUBE TP SCH (18:00)
[2017-05-18] MEDS: CHLORHEXADINE GLUC 2% CLOTH TP SCH (18:00)
--- NOTE | 2017-05-18 18:51 | NUR ---
PATIENT REFUSED MEDICATIONS. PATIENT IS AGITATED AT THIS TIME. WILL CONTINUE TO MONITOR PATIENT. TUBE FEEDING IS RUNNING.
--- NOTE | 2017-05-18 19:22 | NUR ---
GAVE REPORT TO NIGHTSHIFT NURSE. ENDORSED CARE TO NIGHTSHIFT NURSE. BREATHING IS UNLABORED AND SYMMETRICAL. PATIENT IN STABLE CONDITION.
--- NOTE | 2017-05-18 19:57 | NUR ---
BEDSIDE REPORT RECEIVED FROM DAY SHIFT NURSE ELVIRA ROSAS, PT STABLE, NO DISTRESS NOTED, IV ON R FA 22G RUNNING D5 KCL 20MEQ AT 100ML/HR, DAY SHIFT RN REPORTED PT WAS UNCOOPERATIVE, CURRENTLY SLEEPING ON BED, ON ROOM AIR NO SOB, G TUBE IN PLACE, PATENT, INITIAL ASSESSMENT DONE, ALL SAFETY PRECAUTION MET, WILL CONTINUE TO MONITOR. Addendum: 05/18/17 at 2001 by Maryan Sims RN TIME: 1922
[2017-05-18 20:00] VITALS: BP 168/99
--- NOTE | 2017-05-18 20:05 | NUR ---
CHECKED PT BP BP OF 168/99 HR 97 ATTEMPT TO GIVE PT MEDICATION, PT STATED HE DOES NOT WANT ANY MEDICATION, AND THAT HIS ARM AND VEINS ARE TIRED HE DOES NOT WANT ANY MEDICATION. DUE MEDICATION ALSO NOT GIVEN, PT REFUSED ALL MEDICATION THAT ARE DUE.
[2017-05-18] MEDS: INSULIN LANTUS 100 UNITS/ML 10 ML VIAL SUBQ SCH (20:28)
--- NOTE | 2017-05-18 21:38 | NUR ---
PT TUBE FEEDING DONE, PT WOULD NOT LET NURSE CHECK RESIDUAL, PT STATED," DON'T TOUCH ME, FUCK YOU!" TUBE FEEDING STOPPED. PT RESTING ON BED, NO DISTRESS NOTED, CALL LIGHT WITHIN REACH, WILL CONTINUE TO MONITOR.
--- NOTE | 2017-05-18 22:49 | NUR ---
PT RESTING ON BED, NO DISTRESS NOTED, CALL LIGHT WITHIN REACH, WILL CONTINUE TO MONITOR.
--- NOTE | 2017-05-18 23:46 | NUR ---
ATTEMPTED TO CHECK PT BP, PT STATED TO GO AWAY OUT OF HIS FACE AND NOT TO TOUCH HIM. PT STABLE, ON BED, NO DISTRESS NOTED, CALL LIGHT WITHIN REACH.
--- NOTE | 2017-05-19 | NUR ---
CHARGE NURSE ATTEMPT TO CHANGE TUBE FEEDING FOR PT AND CHANGE TELE MONITOR BATTERY, PT STATED GET OUT OF HERE, GRABBED NURSES SHIRT. PT IV ALSO BEEPING, PT WOULD NOT LET NURSE CHECK IV AND STATED, "GET OUT OF HERE, I TOLD YOU, GET OUT OF HERE, OR THERE WILL BE TROUBLE." LEFT PT RESTING ON BED, NO DISTRESS NOTED, CALL LIGHT WITHIN REACH, WILL MONITOR PT.
--- NOTE | 2017-05-19 02:59 | NUR ---
CHECKED ON PT, PT SLEEPING, NO DISTRESS NOTED, CALL LIGHT WITHIN REACH, WILL CONTINUE TO MONITOR.
[2017-05-19] MEDS: POTASSIUM CHL 20 MEQ / DEXT 5% 1,000 ML IV SCH ×2 (03:59→13:59)
--- NOTE | 2017-05-19 04:09 | NUR ---
CHECKED ON PT, PT REFUSED TO BE TOUCH, UNABLE TO TAKE V/S. IVF WAS STOPPED DUE TO ALARM OF PRESSURE ON THE IV SITE, PT REFUSED IV SITE TO BE CHECKED, TUBE FEEDING WAS STOP, PT WOULD NOT LET NURSE CHANGE TUBE FEEDING. PT AWAKE ON BED, NO DISTRESS NOTED, CALL LIGHT WITHIN REACH, WILL CONTINUE TO MONITOR.
--- NOTE | 2017-05-19 06:20 | NUR ---
CHANGED PT, PT ACCEPTED, ATTEMPT TO RECONNECT IV, PT STATED DOES NOT WANT TO BE BOTHER, WOULD NOT EXTEND HIS ARM, STATED THAT HE JUST WANT TO REST. NURSE WAS NOT ABLE TO CHECK BLOOD SUGAR, ADMINISTER DUE MEDICATION, PT REFUSED. PT RESTING ON BED, AWAKE, CALL LIGHT WITHIN REACH, WILL CONTINUE TO MONITOR.
[2017-05-19] MEDS: LANSOPRAZOLE 30 MG CAPDR GT SCH (06:23)
--- NOTE | 2017-05-19 07:25 | NUR ---
ENDORSED PLAN OF CARE TO DAY SHIFT NURSE SAMREEN RN, PT STABLE, CALL LIGHT WITHIN REACH, WILL CONTINUE TO MONITOR.
[2017-05-19] MEDS: BLOOD GLUCOSE MONITORING 1 DEV DEV FS SCH ×3 (07:30→16:46)
--- NOTE | 2017-05-19 07:30 | NUR ---
PT REPORT RECEIVED FROM OCCASIONAL CAREGIVER NURSE, PT STABLE, NO DISTRESS NOTED, IV ON R FA 22G, NO SWELLING NOTED, DENIES ANY PAIN. NO S/S OF ACUTE DISTRESS ON ROOM AIR, VITAL SIGNS TAKEN. REFUSED TO FLUSH OR CONNECT IV, REFUSED TO CONNECT G TUBE FEEDING AND REFUSED ASSESS G -TUBE, WILL TRY AGAIN LATER. ASKED PT IF HE WANTS TO GO BACK TO [facility]. PT DID NOT ANSWER. INITIAL ASSESSMENT DONE, ALL SAFETY PRECAUTION MET, WILL CONTINUE TO MONITOR.
[2017-05-19 08:00] VITALS: BP 158/99
--- NOTE | 2017-05-19 08:20 | NUR ---
PT REFUSED BLOOD SUGAR CHECK. PT STATED "NO, I DON'T WANT TO BE BOTHERED WHEN I SLEEP." EXPLAINED TO PT THE REASON TO CHECK HIS BLOOD SUGAR. PT STATED NO.
--- NOTE | 2017-05-19 10:01 | NUR ---
TRYING TO GIVE PT MEDS THRU G TUBE. PT REFUSED TO BE TOUCHED AND REFUSED MEDS. EXPLAINED TO PT THE PURPOSE OF THE MEDS, HOWEVER PT STILL REFUSING. PT PUSHED ME AWAY AND STATED "GET OUT OF MY FACE".
--- NOTE | 2017-05-19 10:15 | NUR ---
PT WAS REPOSITIONED BY SWATI [facility]QUEZ. JASMINE CARE DONE. DR ANUP Meraz HAS SEEN THE PT.
--- NOTE | 2017-05-19 10:20 | NUR ---
FEEDING STARTED AT 55ML/ HR DIABETISOURCE. Addendum: 05/19/17 at 1347 by Tae Aquino RN APPLE JUICE WAS GIVEN THRU G TUBE
[2017-05-19] MEDS: FUROSEMIDE 40 MG/5 ML ORAL SOL UDC GT SCH (10:43)
[2017-05-19] MEDS: DILTIAZEM 60 MG TAB GT SCH (10:43)
[2017-05-19] MEDS: DOCUSATE 100 MG/10 ML UDC PO SCH (10:44)
[2017-05-19] MEDS: METOPROLOL 50 MG TAB GT SCH (10:45)
[2017-05-19] MEDS ORDERED: QUEtiapine FUMARATE 25 MG TAB PO SCH (10:53)
[2017-05-19] MEDS: MUPIROCIN 2% OINT 22 GM TUBE TP SCH ×2 (11:13→17:38)
[2017-05-19] MEDS: CHLORHEXADINE GLUC 2% CLOTH TP SCH ×2 (11:27→17:38)
--- NOTE | 2017-05-19 11:30 | NUR ---
PER PHARMACY SANYA ROWE TO GIVE 5 TH DOSE OF BACTROBAN AND CHLOROHEXADINE WIPE AT 1800 TO COMPLETE 5 DOSES OF MRSA TREATMENT. WILL GIVEN NEXT DOSE AT 1800.
--- NOTE | 2017-05-19 12:03 | NUR ---
PT REFUSED VITAL SIGNS AND BLOOD SUGAR CHECK. PT STATED NO, NOT RIGHT NOW. EXPLAINED TO PT THE REASON FOR VITALS AND BLOOD SUGAR. ASKED JUDY ROSAS TO TRY. PT STILL REFUSED THEM.
--- NOTE | 2017-05-19 12:30 | NUR ---
PT REFUSED POSITION CHANGE.
[2017-05-19] MEDS ORDERED: cloNIDine 0.1 MG TAB PO SCH (13:00)
--- NOTE | 2017-05-19 13:40 | NUR ---
PT IS SLEEPING IN BED, BREATHING EVEN AND UNLABORED.
--- NOTE | 2017-05-19 14:55 | NUR ---
PER JEZ AT [facility], PT IS GOING TO 30A, OK TO TRANSFER AFTER 1800 DOSE OF BACTROBAN TOPICAL TO NARE FOR MRSA, WILL ARRANGE [facility].
--- NOTE | 2017-05-19 15:05 | NUR ---
PT REFUSED POSITION CHANGE. PT REFUSED TO BE TOUCHED. ASKED PT IF HE IS WET, HE DID NOT RESPOND TO THE QUESTION. PT SAID FUCK OFF.
[2017-05-19 16:10] VITALS: BP 106/56
--- NOTE | 2017-05-19 16:10 | NUR ---
TRANSPORT [facility] ARRANGED, ETA 1800, NURSE SAMREEN TO CALL REPORT, PT MADE AWARE OF DC PLAN, PT AGREEABLE TO DC BACK TO [facility], BLOOD SUGAR 106 NOW, VITALS STABLE, BM X1, PERICARE DONE, LINEN CHANGED, GOWN CHANGED, WILL CONTINUE TO MONITOR.
--- NOTE | 2017-05-19 17:05 | NUR ---
CALLED [facility], REPORT GIVEN TO HECTOR. PT WILL GO TO ROOM 30A, ACCEPTING MD UNKNOWN AT THIS TIME, HECTOR STATED SHE WILL CALL ME BACK. CALLED MS LUU, PT'S SISTER, NOTIFIED HER THAT PT IS GOING BACK TO [facility].
--- NOTE | 2017-05-19 18:00 | NUR ---
PT DISCHARGED PER MD ORDER. DISCHARGE INSTRUCTIONS GIVEN. PT VERBALIZED UNDERSTANDING. PT LEFT WITH [facility]. PT IS IN STABLE CONDITION. NO S/S OF DISTRESS, DENIES ANY PAIN.
[2017-05-20] MEDS ORDERED: QUEtiapine FUMARATE 25 MG TAB PO SCH (09:00)
== END 2017-05-19 18:00 | disposition home or self-care (01) | DRG 393 ==
LOC: MED 11:28 → MTU 12:43
PROVIDERS: ADMIT Preventive Medicine Preventive Medicine/Occupational Environmental Medicine; ATTEND Preventive Medicine Preventive Medicine/Occupational Environmental Medicine
PROC: 0D20XUZ Change Feeding Device in Upper Intestinal Tract, External Approach (ICD-10-PCS; principal; 2017-05-17 10:00)
DX: K94.23 Gastrostomy malfunction (principal); A41.9 Sepsis, unspecified organism; N17.0 Acute kidney failure with tubular necrosis; D68.59 Other primary thrombophilia; E11.36 Type 2 diabetes mellitus with diabetic cataract; E11.51 Type 2 diabetes mellitus with diabetic peripheral angiopathy without gangrene; E11.65 Type 2 diabetes mellitus with hyperglycemia; I50.9 Heart failure, unspecified; F20.9 Schizophrenia, unspecified; K21.9 Gastro-esophageal reflux disease without esophagitis; I11.9 Hypertensive heart disease without heart failure; G40.909 Epilepsy, unspecified, not intractable, without status epilepticus; H40.9 Unspecified glaucoma; K44.9 Diaphragmatic hernia without obstruction or gangrene; R13.10 Dysphagia, unspecified; R63.3 Feeding difficulties; Z22.322 Carrier or suspected carrier of Methicillin resistant Staphylococcus aureus; Z85.818 Personal history of malignant neoplasm of other sites of lip, oral cavity, and pharynx; Z91.14 Patient's other noncompliance with medication regimen; Z92.3 Personal history of irradiation; Z86.73 Personal history of transient ischemic attack (TIA), and cerebral infarction without residual deficits
CPT/HCPCS: 36415; 70370; 71045; 80048; 82150; 82948; 83036; 83690; 83735; 83880; 84100; 84439; 84443; 84484; 85025; 85610; 85730; 87081; 92611; 93005; 93925; 93970; 97799; 99285; 99291; J0360; J0690; J1200; J1815; J2001; J2250; J2270; J3010; J3480; J3490; J7030; J7042; J7060; J7070; Q0092

== ENCOUNTER 2017-06-21 13:50 | Inpatient (IN) | payer OTHER, MEDICAID ==
[~2017-06-21] VITALS: Ht 170.2 cm; Wt 72.1 kg
[~2017-06-21 13:50] MED LIST changes: +DILT180C88 GT; +FURO-572 GT; -GLU500 PO; +LANS15EC28 GT; +LANTUS SUBQ; +MAG400 GT; +METO25TA GT; +VITA1TAB44 GT
[2017-06-21 13:55] VITALS: BP 121/69
--- NOTE | 2017-06-21 13:58 | NUR ---
BLOOD GLUCOSE CHECKED 14. PATIENT AWAKE/EYES OPEN NOT RESPONDING VERBALLY.DR. PRITCHETT AT [facility].
--- NOTE | 2017-06-21 14:00 | NUR ---
71 YO M BIBA W/ ALOC FROM [facility], FOR S/P FALL YESTERDAY . PT ARRIVED W/ 50 BS IN THE FIELD. RECHECKED IN ER YEILDED 22 BLOOD GLUCOSE. HAIR WEAVER VERITO ADMINISTER GLUCAGON IN TRIAGE PLUS FRUIT JUICE VIA GTUBE TO PT. PATIENT NON-VERBAL ON ARRIVAL BUT AWAKE/EYES OPEN. PT SEEMS TO BE TALKING BETTER/MORE AWAKE AT THIS TIME. PT HAS RIGHT DRY SKIN TEARS. LEFT HAND SCRATCHES NOTED. LEFT EYE IS RED AND SLIGHTLY SWOLLEN. RIGHT LEG HAS DRY SKIN TEARS ON THE VALADEZ, RIGHT KNEE HAS 1 BLACK SCAB AND 1 RED SCAB. RIGHT VALADEZ HAS 1 BLACK SCAB, RIGHT KNEE HAS 1 SMALL ABRASION. LEFT ELBOW HAS A SMALL SCAB. LEFT FOOT, 4 TOES REMAIN W/ DRY SKIN TEARS ACROSS KNUCKLES. 5TH TOE IS MISSING. LEFT KNEE HAS 2 X DRY SKIN TEARS, AND LEFT VALADEZ HAS SCRATCHES NOTED. REPIRATIONS EVEN AND UNLABORED AT THIS TIME. LUNG SOUNDS CLEAR BILATERALLY AT THIS TIME. PT NOW A&O X 4. IRRITATED AND CURSING WHEN ATTEMPTING TO ASSESS SKIN ON PERINEAL AREA/ABD. GTUBE NOTED AND INTACT. SKIN SURROUNDING INTACT AND DRY. GCS 15. CMS INTACT. ER MD GALINDO NOTIFIED OF PT STATUS. PT NEEDS MET AT THIS TIME. SAFETY PRECAUTIONS IN PLACE. WILL CONTINUE TO MONITOR.
[2017-06-21] MEDS ORDERED: GLUCAGON 1 MG VIAL ONE (14:01)
--- NOTE | 2017-06-21 14:02 | NUR ---
[address] in [facility] - 06/21/17 at 1430 by MEDHT [id number] TIDEA ADMINISTERED GLUCAGON
--- NOTE | 2017-06-21 14:02 | NUR ---
GLUCAGON 1MG. IM GIVEN LT. DELTOID
--- NOTE | 2017-06-21 14:05 | NUR ---
8 OZ. ORANGE JUICE TO GTUBE PER DR. PRITCHETT ORDER
--- NOTE | 2017-06-21 14:10 | NUR ---
PATIENT STARTED RESPONDING VERBALLY AND MOVING AROUND MORE
[2017-06-21] MEDS ORDERED: METO25TA GT (14:39)
[2017-06-21] MEDS ORDERED: SENN-73 GT (14:39)
[2017-06-21] MEDS ORDERED: FURO-572 GT (14:39)
[2017-06-21] MEDS ORDERED: ACET-2619 PO (14:39)
[2017-06-21] MEDS ORDERED: FOLI1TAB89 GT (14:39)
[2017-06-21] MEDS ORDERED: QUET25TA GT (14:39)
[2017-06-21] MEDS ORDERED: DOCU-299 GT (14:39)
[2017-06-21] MEDS ORDERED: CIPR5SOL3 OP (14:39)
[2017-06-21] MEDS ORDERED: DILT180C88 GT (14:39)
[2017-06-21] MEDS ORDERED: POLY15SO48 OP (14:39)
[2017-06-21] MEDS ORDERED: CLON0.1T42 PO (14:39)
--- NOTE | 2017-06-21 14:45 | NUR ---
PT VERBALLY ABUSIVE CURSING STAFF CLAIMED LEAVE ME ALONE
--- NOTE | 2017-06-21 14:51 | NUR ---
PER MD GIVE D50 AT THIS TIME, EMT REMOVED DIAPER, NOTED INCONTINENT DERMATITIS ON ABDOMINAL AND THIGH, STILL REFUSING TO TURN AND UNABLE TO CHECK SACRAL AREA, WILL CHECK AGAIN LATER.
[2017-06-21] MEDS ORDERED: DEXTROSE 50% 50 ML SYR IVP ONE ×2 (14:52→15:35)
[2017-06-21] MEDS ORDERED: GLUCAGON 1 MG VIAL IM ONE (15:35)
--- NOTE | 2017-06-21 15:37 | NUR ---
PT TO CT AT THIS TIME.
--- NOTE | 2017-06-21 16:10 | NUR ---
LAB AT BEDSIDE
--- NOTE | 2017-06-21 16:12 | NUR ---
ASKED PT FOR URINE, PT JUST IGNORE NURSE, WILL RELAY TO
--- NOTE | 2017-06-21 16:15 | NUR ---
MD AWARE UNABLE TO GIVE URINE PER MD JUST DO IN AND OUT CATH, CHARGE NURSE CANDELARIO WILL DO IT.
[2017-06-21 16:24] LABS: BASOPHILS # (AUTO) 0.5 K/uL (0.00-0.22); BASOPHILS % (AUTO) 4.2 % (0.0-2.0); EOSINOPHILS % (AUTO) 0.3 % (0.0-4.0); HEMATOCRIT 42.7 % (36-52); HEMOGLOBIN 13.8 g/dL (12.0-18.0); LYMPHOCYTES # (AUTO) 1.5 K/uL (2.0-11.5); LYMPHOCYTES % (AUTO) 13.1 % (20.5-51.1); MEAN CORPUSCULAR HEMOGLOBIN 31 pg (27-31); MEAN CORPUSCULAR HGB CONC 32 g/dL (33-37); MEAN CORPUSCULAR VOLUME 96.8 fL (80-94); MONOCYTES # (AUTO) 0.4 K/uL (0.8-1.0); MONOCYTES % (AUTO) 3.7 % (1.7-9.3); NEUTROPHILS # (AUTO) 8.9 K/uL (1.8-7.7); NEUTROPHILS % (AUTO) 78.7 % (42.2-75.2); PLATELET COUNT (AUTO) 238 K/uL (140-450); RED BLOOD CELL COUNT(AUTO) 4.41 MIL/uL (4.20-6.10); RED CELL DISTRIBUTION WIDTH 12.1 % (11.6-13.7); WHITE BLOOD COUNT (AUTO) 11.3 K/uL (4.8-10.8)
--- NOTE | 2017-06-21 16:32 | NUR ---
PT STILL REFUSING SACRAL AREA TO BE CHECK CLAIMED LEAVE ME ALONE
[2017-06-21 16:39] LABS: ALBUMIN 3.5 g/dL (3.4-5.0); ANION GAP 15.5 (8-16); ASPARTATE AMINOTRANSFERASE 38 U/L (15-37); CARBON DIOXIDE 31.5 mmol/L (21-32); CHLORIDE 102 mmol/L (98-107); CREATININE 1.7 mg/dL (0.7-1.3); GFR ARICAN-AMERICAN 52 mL/min (>90); GLUCOSE 157 mg/dL (74-106); SALICYLATE < 2.8 mg/dL (2.8-20.0); SODIUM SERUM 146 mmol/L (136-145); TOTAL BILIRUBIN 0.7 mg/dL (0.0-1.0); UREA NITROGEN, BLOOD 44 mg/dL (7-18)
[2017-06-21 16:40] LABS: ACETAMINOPHEN < 0.5 ug/ml (10-30)
--- NOTE | 2017-06-21 17:04 | NUR ---
PER MD HE WILL CHECK THE BUN AND CR, AWARE OF THE RESULT OF TROPONIN
--- NOTE | 2017-06-21 17:32 | NUR ---
CHARGE NURSE TRY TO DO IN AND OUT BUT UNABLE ,PT REFUSED TO GIVE URINE AND DOESNT WANT NURSES TO DO IN AND OUT CATH, PT VERY UNCOOPERATIVE,
--- NOTE | 2017-06-21 17:39 | NUR ---
TRY TO RECHECK BS BUT PT REFUSED CURSING NURSE, AND SAID GET OUT OF HERE, EMT AT BEDSIDE, WILL TRY TO TAKE PICTURE OF SKIN
[2017-06-21] MEDS ORDERED: ACETAMINOPHEN 325 MG TAB PO PRN (18:25)
[2017-06-21] MEDS ORDERED: SENNA 8.6 MG TAB GT PRN (18:25)
[2017-06-21] MEDS ORDERED: cloNIDine 0.1 MG TAB PO PRN (18:25)
[2017-06-21] MEDS ORDERED: ZOLPIDEM 5 MG TAB GT PRN (18:30)
[2017-06-21] MEDS ORDERED: LORazepam 1 MG TAB GT PRN (18:30)
[2017-06-21] MEDS ORDERED: INSULIN LISPRO SLIDING SCALE 100 UNITS/ML VIAL SUBQ PRN (18:30)
[2017-06-21] MEDS ORDERED: DEXTROSE 50% 50 ML SYR IVP PRN (18:30)
[2017-06-21] MEDS ORDERED: NITROGLYCERIN 0.4 MG TAB SL PRN (18:30)
[2017-06-21] MEDS ORDERED: ONDANSETRON 4 MG/2 ML VIAL IVP PRN (18:30)
[2017-06-21] MEDS ORDERED: MORPHINE SULFATE 4 MG/ML SYR IVP PRN ×2 (18:30)
[2017-06-21] MEDS ORDERED: LORazepam 2 MG/ML VIAL IVP PRN (18:30)
[2017-06-21] MEDS ORDERED: HYDROcodone/APAP 5/325 MG 1 TAB TAB GT PRN (18:30)
[2017-06-21] MEDS ORDERED: ALUMINUM HYD/MAG/SIMETHICONE 30 ML UDC GT PRN (18:30)
--- NOTE | 2017-06-21 18:45 | NUR ---
Patient will be admitted to care of RALPH Martinez. Admited to Tele. Will go to room ICU 2. Belongings list completed. Pt tolerated transition well.
--- NOTE | 2017-06-21 18:45 | NUR ---
RECEIVED PT FROM EMERGENCY ROOM RN. PT IS REFUSING MRSA SWAB, REFUSING IV INSERTION, REMOVING LEADS. GOT PT SITUATED IN BED, COMFORTABLE AND SAFE AND TRANSFERRED CARE TO LEONOR THOMPSON RN.
--- NOTE | 2017-06-21 19:20 | NUR ---
RECEIVED PT FROM DAY NURSE. NO ACUTE DISTRESS WILL CONTINUE TO OBSERVE.
--- NOTE | 2017-06-21 19:45 | NUR ---
PT AWAKE SITTING UP IN BED, RIGID, ABLE TO MOVE EXTREMITIES SLOWLY, L EYE REDDENED, DISCOLORATION NOTED TO LEFT OCCIPITAL AREA. LUNGS CTA, SR 90S ON MONITOR NO EDEMA NOTED. + 2 RADIAL PULSES, + 1 PEDAL PULSES, G TUBE PRESENT CLAMPED, INCONTINENT TO URINE. VARIOUS SCABS TO BILATERAL KNEES, SCRATCHES TO BILATERAL ARMS HANDS. WILL CONTINUE TO MONITOR.
[2017-06-21 20:00] VITALS: BP 123/76
--- NOTE | 2017-06-21 20:15 | NUR ---
PT BELLIGERENT, CUSSING @ NURSING STAFF; AGGRESSIVE BEHAVIOR REFUSING IV @ THIS TIME. WILL CONTINUE TO OBSERVE.
[2017-06-21] MEDS: BLOOD GLUCOSE MONITORING 1 DEV DEV FS SCH (20:29)
--- NOTE | 2017-06-21 20:36 | NUR ---
INFORMED MD ABOUT PT BEHAVIOR, JOSSELIN YAN ORDERED, HOLD IV ACCESS @ THIS TIME; ALSO NOTIFIED ABOUT G TUBE FINDINGS UNABLE TO AUSCULTATE. KUB ORDERED. WILL CONTINUE TO OBSERVE.
[2017-06-21] MEDS: DOCUSATE 100 MG/10 ML UDC GT SCH (20:38)
[2017-06-21] MEDS ORDERED: HALOPERIDOL IM 5 MG/ML VIAL IM PRN (20:40)
[2017-06-21] MEDS: POLYVINYL ALCOHOL 1.4% OP 15 ML SOL BOTH EYES SCH (21:00)
[2017-06-21] MEDS ORDERED: DILTIAZEM HCL 180 MG GT SCH (21:00)
[2017-06-21] MEDS ORDERED: INSULIN LANTUS 100 UNITS/ML 10 ML VIAL SUBQ SCH (21:00)
--- NOTE | 2017-06-21 22:00 | NUR ---
PT CONTINUES TO REFUSE PERIPHERAL IV, NON COMPLIANT WITH CURRENT TREATMENT, PULLING EKG LEADS OFF AND DETACHING BP CUFF. NEEDS FREQUENT REORIENTATION. NO ACUTE DISTRESS WILL CONTINUE TO OBSERVE.
--- NOTE | 2017-06-21 23:30 | NUR ---
PT REFUSING TROPONIN LAB DRAW. WILL CONTINUE TO OBSERVE.
[2017-06-22] VITALS: BP 140/68
--- NOTE | 2017-06-22 00:30 | NUR ---
PT FEELING ANXIOUS, OFFERED PRN ATIVAN SEE EMAR FOR DETAILS. WILL CONTINUE TO OBSERVE.
--- NOTE | 2017-06-22 01:30 | NUR ---
PT CONTINUES TO REMOVE LEADS, BP CUFF. NEEDS REORIENTATION. WILL CONTINUE TO OBSERVE.
--- NOTE | 2017-06-22 03:00 | NUR ---
REPORT GIVEN TO [facility] NURSE, [facility]. NO ACUTE DISTRESS. ENDORSED CARE TO MST
--- NOTE | 2017-06-22 03:11 | NUR ---
PT BROUGHT TO FLOOR BY ICU NURSE DONNA. NO S/S OF ACUTE DISTRESS. PT AAOX2. PT DENIES PAIN AT THIS TIME. PT HAS NO IV. G-TUBE SITE NOTED. PT HAS SCABS TO BILATERAL LOWER EXTREMITIES. PT HAS EXCORIATION TO ABDOMINAL FOLD AND BILAT HIPS. CALL LIGHT WITHIN REACH. SAFETY MEASURES ENSURED. WILL CONTINUE TO MONITOR.
[2017-06-22 03:18] VITALS: BP 135/70
[2017-06-22] MEDS: BLOOD GLUCOSE MONITORING 1 DEV DEV FS SCH ×4 (06:07→20:29)
--- NOTE | 2017-06-22 07:10 | NUR ---
RECEIVED PATIENT REPORT AT BEDSIDE. PATIENT ASLEEP BUT AROUSABLE. NO S/S OF DISTRESS NOTED. PATIENT ON ROOM AIR. NO IV LINE IN PLACE. PATIENT ON TELE MONITORING. BED LOWERED WITH CALL LIGHT WITHIN REACH. WILL CONTINUE TO MONITOR
--- NOTE | 2017-06-22 07:15 | NUR ---
ENDORSED PLAN OF CARE TO NIGHT RN. PT STABLE.
[2017-06-22 08:00] VITALS: BP 136/99
[2017-06-22] MEDS ORDERED: FUROSEMIDE 20 MG TAB GT SCH (09:00)
[2017-06-22] MEDS: DOCUSATE 100 MG/10 ML UDC GT SCH (09:00)
[2017-06-22] MEDS: POLYVINYL ALCOHOL 1.4% OP 15 ML SOL BOTH EYES SCH ×5 (09:00→21:16)
[2017-06-22] MEDS: CIPROFLOXACIN 0.3% OP 2.5 ML BTL LEFT EYE SCH ×3 (09:00→16:55)
--- NOTE | 2017-06-22 09:00 | NUR ---
ADMINISTERED MEDICATIONS VIA G-TUBE. NO RESIDUALS NOTED. PATIENT TOLERATED WELL
[2017-06-22] MEDS: METOPROLOL 25 MG TAB GT SCH (09:20)
[2017-06-22] MEDS: MAGNESIUM OXIDE 400 MG TAB GT SCH (09:20)
[2017-06-22] MEDS: FOLIC ACID 1 MG TAB GT SCH (09:20)
[2017-06-22] MEDS: QUEtiapine FUMARATE 25 MG TAB GT SCH (09:21)
[2017-06-22] MEDS ORDERED: POTASSIUM CHLORIDE 20% 40 MEQ/15 ML UDC GT SCH (10:06)
--- NOTE | 2017-06-22 10:21 | NUR ---
PATIENT HAS BEEN SCREENED AND CATEGORIZED HIGH NUTRITION RISK. PATIENT WILL BE SEEN WITHIN 1-2 DAYS OF ADMISSION. 06/22/17 - 06/23/[address]
--- NOTE | 2017-06-22 11:55 | NUR ---
RECEIVED A CALL FROM VALDO FROM [employer]. FAXED INITIAL REVIEW TO HER AT [phone]. PHONE FOR VALDO [phone] X [phone]. VALDO SAID FOR ANY NEEDS OVER WEEKEND CALL THE MAIN NUMBER,
[2017-06-22 12:00] VITALS: BP 136/78
--- NOTE | 2017-06-22 13:00 | NUR ---
PATIENT HAD BM. BM LOOSE AND MODERATE IN AMOUNT. PATIENT GIVEN BED BATH. PATIENT TURNED AND REPOSITIONED FOR COMFORT
--- NOTE | 2017-06-22 14:00 | NUR ---
PATIENT ASLEEP IN BED. NO S/S OF DISTRESS NOTED
--- NOTE | 2017-06-22 14:16 | NUR ---
06/22/17 RD INITIAL ASSESSMENT COMPLETED PLEASE REFER TO NUTRITION ASSESSMENT UNDER CARE ACTIVITY FOR ESTIMATED NUTRITIONAL NEEDS. 1. CONTINUE NPO DIET MEDICALLY NECESSARY 2. WHEN MEDICALLY APPROPRIATE CONSIDER DIABETESOURCE 65 ML/HR X 24 HR. BEGIN FEEDS AT 30 ML/HR, ADVANCE 20 ML Q SHIFT TOLERATED UNTIL GOAL RATE IS REACHED. PROVIDES 1872 KCAL, 94 G PROTEIN, 1276 ML FREE WATER AT GOAL RATE. 3. RECOMMEND FLUSH 120 ML Q4H (PROVIDES 720 ML FREE WATER) 4. RD TO FOLLOW-UP 2-3 DAYS, HIGH RISK SARAH PADILLA RD
[2017-06-22 16:00] VITALS: BP 135/73
--- NOTE | 2017-06-22 16:40 | NUR ---
PATIENT SEEN BY DR MEDRANO
[2017-06-22] MEDS: NACL 0.45% 1,000 ML IV SCH (18:00)
[2017-06-22] MEDS ORDERED: KCL 20 MEQ/WATER INJ PREMIX 100 ML IV SCH (18:00)
[2017-06-22 19:04] LABS: BASOPHILS # (AUTO) 0.1 K/uL (0.00-0.22); EOSINOPHILS # (AUTO) 0.2 K/uL (0-0.4); EOSINOPHILS % (AUTO) 2.9 % (0.0-4.0); HEMATOCRIT 40.9 % (36-52); HEMOGLOBIN 13.7 g/dL (12.0-18.0); LYMPHOCYTES # (AUTO) 2.5 K/uL (2.0-11.5); LYMPHOCYTES % (AUTO) 35.7 % (20.5-51.1); MEAN CORPUSCULAR HEMOGLOBIN 33 pg (27-31); MEAN CORPUSCULAR HGB CONC 34 g/dL (33-37); MEAN CORPUSCULAR VOLUME 96.8 fL (80-94); MONOCYTES # (AUTO) 0.5 K/uL (0.8-1.0); MONOCYTES % (AUTO) 7.9 % (1.7-9.3); NEUTROPHILS # (AUTO) 3.6 K/uL (1.8-7.7); NEUTROPHILS % (AUTO) 52.5 % (42.2-75.2); PLATELET COUNT (AUTO) 255 K/uL (140-450); RED BLOOD CELL COUNT(AUTO) 4.23 MIL/uL (4.20-6.10); RED CELL DISTRIBUTION WIDTH 13.3 % (11.6-13.7); WHITE BLOOD COUNT (AUTO) 6.9 K/uL (4.8-10.8)
[2017-06-22 19:23] LABS: ALBUMIN 3.7 g/dL (3.4-5.0); ANION GAP 10.5 (8-16); CARBON DIOXIDE 36.9 mmol/L (21-32); CREATININE 1.7 mg/dL (0.7-1.3); MAGNESIUM 2.2 mg/dL (1.8-2.4); PHOSPHORUS 2.9 mg/dL (2.5-4.9); POTASSIUM 3.4 mmol/L (3.5-5.1); TOTAL BILIRUBIN 0.5 mg/dL (0.0-1.0)
--- NOTE | 2017-06-22 19:30 | NUR ---
PATIENT REPORT GIVEN AT BEDSIDE. PATIENT ENDORSED IN STABLE CONDITION
[2017-06-22 19:33] LABS: CREATINE KINASE MB 1.6 ng/mL (0-3.6)
--- NOTE | 2017-06-22 19:35 | NUR ---
RECEIVED PATIENT LYING IN BED. CALL LIGHTS WITHIN REACH. FALL PRECAUTION IMPLEMENTED. WILL CONTINUE TO MONITOR.
[2017-06-22 20:00] VITALS: BP 144/82
[2017-06-22] MEDS: DILTIAZEM 60 MG TAB GT SCH (21:15)
[2017-06-23] VITALS: BP 114/54
[2017-06-23 04:00] VITALS: BP 145/76
[2017-06-23] MEDS: BLOOD GLUCOSE MONITORING 1 DEV DEV FS SCH ×4 (06:05→21:00)
--- NOTE | 2017-06-23 07:25 | NUR ---
RECEIVED REPORT FROM NIGHTSHIFT NURSE AT BEDSIDE. PATIENT IS AWAKE AT THIS TIME. PATIENT ALERT AND ORIENTED X2. REORIENTED PATIENT TO SETTING AND DATE. PATIENT PRESENTS WITH SOFT-MITTENS. PER REPORT, PATIENT HAS BEEN ATTEMPTING TO PULL OUT IV LINE AND G-TUBE. PATIENT APPEARS CONFUSED. PATIENT HAS A G-TUBE RUNNING ISOSOURCE AT 45ML/HR. PATIENT HAS IV WRAPPED IN KERLIX. BED ALARM IS ON. LOWERED BE TO LOWEST SETTING.UPDATED BOARD AND PLACED APPROPRIATE SIGNS OUTSIDE OF PATIENT'S ROOM. WILL FREQUENTLY MONITOR PATIENT.
--- NOTE | 2017-06-23 07:25 | NUR ---
ENDORSED PATIENT TO AM SHIFT NURSE FOR CONTINUITY OF CARE. PATIENT IN STABLE CONDITION.
[2017-06-23 07:40] LABS: BASOPHILS % (AUTO) 0.5 % (0.0-2.0); EOSINOPHILS # (AUTO) 0.2 K/uL (0-0.4); EOSINOPHILS % (AUTO) 2.5 % (0.0-4.0); HEMATOCRIT 35.3 % (36-52); HEMOGLOBIN 12.2 g/dL (12.0-18.0); LYMPHOCYTES # (AUTO) 2.4 K/uL (2.0-11.5); LYMPHOCYTES % (AUTO) 31.1 % (20.5-51.1); MEAN CORPUSCULAR HEMOGLOBIN 34 pg (27-31); MEAN CORPUSCULAR HGB CONC 35 g/dL (33-37); MEAN CORPUSCULAR VOLUME 96.5 fL (80-94); MONOCYTES # (AUTO) 0.7 K/uL (0.8-1.0); NEUTROPHILS # (AUTO) 4.4 K/uL (1.8-7.7); NEUTROPHILS % (AUTO) 56.9 % (42.2-75.2); PLATELET COUNT (AUTO) 204 K/uL (140-450); RED BLOOD CELL COUNT(AUTO) 3.65 MIL/uL (4.20-6.10); RED CELL DISTRIBUTION WIDTH 12.8 % (11.6-13.7); WHITE BLOOD COUNT (AUTO) 7.7 K/uL (4.8-10.8)
[2017-06-23 07:52] LABS: ANION GAP 12.9 (8-16); CREATININE 1.4 mg/dL (0.7-1.3); POTASSIUM 3.9 mmol/L (3.5-5.1)
[2017-06-23 07:54] LABS: MAGNESIUM 1.9 mg/dL (1.8-2.4); PHOSPHORUS 2.5 mg/dL (2.5-4.9)
[2017-06-23 08:00] VITALS: BP 129/73
--- NOTE | 2017-06-23 08:25 | NUR ---
PATIENT ASLEEP AT THIS TIME. NO COMPLAINTS OF PAIN. WILL CONTINUE TO MONITOR PATIENT.
[2017-06-23] MEDS: POTASSIUM CHLORIDE 20% 40 MEQ/15 ML UDC GT SCH (09:47)
[2017-06-23] MEDS: MAGNESIUM OXIDE 400 MG TAB GT SCH (09:47)
[2017-06-23] MEDS: METOPROLOL 25 MG TAB GT SCH (09:48)
[2017-06-23] MEDS: FOLIC ACID 1 MG TAB GT SCH (09:48)
[2017-06-23] MEDS: DILTIAZEM 60 MG TAB GT SCH ×2 (09:48→21:30)
[2017-06-23] MEDS: QUEtiapine FUMARATE 25 MG TAB GT SCH (09:49)
[2017-06-23] MEDS: POLYVINYL ALCOHOL 1.4% OP 15 ML SOL BOTH EYES SCH ×4 (09:52→21:30)
[2017-06-23] MEDS: CIPROFLOXACIN 0.3% OP 2.5 ML BTL LEFT EYE SCH ×3 (09:52→17:17)
--- NOTE | 2017-06-23 10:21 | NUR ---
PATIENT ATTEMPTING TO PULL OFF TELE LEADS. CHANGED PATIENT'S LEAD STICKERS. PATIENT DOES NOT APPEAR IN ANY DISTRESS. WILL CONTINUE TO MONITOR PATIENT.
[2017-06-23 12:00] VITALS: BP 100/52
--- NOTE | 2017-06-23 12:45 | NUR ---
CHECKED PATIENT'S BLOOD PRESSURE. BLOOD PRESSURE DECREASED AT 84/75, 60. PATIENT FAMILY MEMBER AT BEDSIDE. PATIENT IS LAYING DOWN. PLACED PATIENT IN [place] POSITION. WILL NOTIFY ATTENDING DOCTOR OF ABNORMAL FINDINGS.
--- NOTE | 2017-06-23 13:05 | NUR ---
STARTED PATIENT ON A BOLUS OF NACL 1 LITER BAG. WILL RECHECK BLOOD PRESSURE.
[2017-06-23] MEDS: NACL 0.45% 1,000 ML IV SCH (13:15)
--- NOTE | 2017-06-23 13:25 | NUR ---
PATIENT BLOOD PRESSURE INCREASED TO 100/52. WILL NOTIFY OF FINDINGS.
[2017-06-23] MEDS ORDERED: NACL 0.9% 1,000 ML IV SCH (14:15)
--- NOTE | 2017-06-23 14:39 | NUR ---
1400 RECEIVED CALL FROM LACIE GARCIA WEB PORTAL DEVELOPER THAT WHEN SHE CALLED [facility] TO INQUIRE ABOUT PT STATUS TO RETURN TO THE FACILITY SHE WAS INFORMED BY MOHINI ANDINO THAT PT WAS NOT ELIGIBLE TO RETURN AND THAT THE AT [facility] WAS SUPPOSED TO HAVE MADE ARRANGEMENTS FOR PT TO GO TO [place] FOR A PSYCHIATRIC EVAL. 1408 CALL PLACED TO [facility] AND SPOKE WITH MOHINI ANDINO AND SHE STATED THAT FACILITY WAS NOT ACCEPTING PT BACK AT [facility] WAS SUPPOSED TO MAKE ARRANGEMENTS FOR PT TO GO TO [place] FOR A PSYCH EVAL. NIKOLAS CISNEROS OF [facility] THEN JOINED THE CALL AND HE STATED ALSO THAT THE PT WAS SUPPOSED TO HAVE A PSYCH EVAL PER INSURANCE CM. I INFORMED THEM BOTH THAT [facility] IS A MEDICAL FACILITY AND THAT THE PT PRESENTED TO THE ED WITH THE INFORMATION THAT PT HAD HAD A LOW BLOOD SUGAR AND THAT PT WAS SEEN FOR MEDICAL ISSUES AND IT WAS NOT PRESENTED ON ARRIVAL TO THE ED THAT THE PT HAD BEEN TRANSFERRED FOR A PSYCH EVAL. PER NIKOLAS THE FACILITY WAS NOT TAKING PT BACK. I ASKED NIKOLAS HOW LONG PT HAD BEEN A RESIDENT AT [facility] AND HE SAID "A FEW MONTHS". I THEN ASKED FOR A MORE SPECIFIC TIME FRAME AND HE STATED "ABOUT FOUR MONTHS" I INFORMED NIKOLAS THAT I WOULD FOLLOW UP ON SUNDAY REGARDING THIS ISSUE. 1417 RECEIVED A CALL FROM NIKOLAS CISNEROS AT [facility] AND HE STATED THAT THERE HAD BEEN A MISCOMMUNICATION AND HE THOUGHT THAT THIS RUBBER GOODS FINISHER WAS CALLING FROM [place] AND I INFORMED HIM THAT I HAD INTRODUCED MYSELF DCM OF [facility]. NIKOLAS THEN STATED THAT PT WAS SUPPOSED TO HAVE BEEN TRANSFERRED TO [facility] FOR PSYCH EVAL. NIKOLAS THEN STATED THAT PT WOULD BE ACCEPTED BACK FOR READMISSION WHEN READY AND THAT PT IS ON A 7 DAY BED HOLD AND THAT [employer] SUPERVISOR FINE GRAD[employer] COULD BE CONTACTED. SPOKE WITH QUAN CHARGE NURSE AND SHE STATED THAT PT HAD A LOW BLOOD PRESSURE TODAY AND IS NOT STABLE AT THIS TIME. CALLED [facility] AND SPOKE WITH YAZ SUPERVISOR FINE GRADING AND INFORMED HER THAT PT WOULD NOT BE DISCHARGED TODAY. 1432 RECEIVED A CALL FROM LAI AT [facility] INQUIRING ABOUT PT STATUS AND PROVIDED HIM WITH CLINICAL INFORMATION THAT PT ORIGINALLY ADMITTED TO [facility] FOR MEDICAL REASON AND IT WAS NOT PRESENTED ON ADMIT THAT PT HAD ANY PSYCH ISSUES. ALSO INFORMED HIM OF MY CONVERSATIONS WITH [facility]. PER LAI HE WILL REPORT TO HIS GRE INSTRUCTOR AND ARRANGE TO HAVE PT EVALUATED BY PSYCH AT [facility]. ALSO INFORMED LAI THAT [facility] HAS INDICATED THAT PT WILL BE ACCEPTED BACK WHEN MEDICALLY CLEARED FOR DISCHARGE.
[2017-06-23 16:00] VITALS: BP 102/55
--- NOTE | 2017-06-23 16:48 | NUR ---
PATIENT ASLEEP AT THIS TIME. NO SIGNS OF PAIN. WILL CONTINUE TO MONITOR PATIENT.
--- NOTE | 2017-06-23 19:15 | NUR ---
RECEIVED REPORT FROM DAY SHIFT NURSE. AAOX2. NO C/O PAIN. NO RESP DISTRESS NOTED. PT HAS LEFT EYE REDNESS, SCABS TO DRU. LOWER EXT. IV TO LEFT FA #22G, 1/2NS AT 5O ML/HR. PT HAS G-TUBE, PATENT AND INTACT. TOLERATING FEEDING WELL. SAFETY AND ASPIRATION PRECAUTION IN PLACE. CALL LIGHT WITHIN REACH.
[2017-06-23] MEDS: CHLORHEXADINE GLUC 2% CLOTH TP SCH (19:30)
[2017-06-23] MEDS: MUPIROCIN 2% OINT 22 GM TUBE TP SCH (19:30)
[2017-06-23 20:00] VITALS: BP 152/75
--- NOTE | 2017-06-23 20:40 | NUR ---
DR. Nithya HEBERT MADE AWARE OF PT'S BP 152/75. MD ORDERED TO GIVE THE BP MEDS DUE FOR 2100 THEN MONITOR BP. IF SBP>150, GIVE PRN CATAPRES 0.1MG VIA GT Q4H ORDERED.
[2017-06-23] MEDS: DOCUSATE 100 MG/10 ML UDC GT SCH ×2 (21:00→21:30)
--- NOTE | 2017-06-23 21:35 | NUR ---
CHECKED GT RESIDUAL 5 ML. DUE MEDS GIVEN VIA G-TUBE. PT TOLERATED WELL. ASPIRATION, SEIZURE AND FALL PRECAUTION IN PLACE.
[2017-06-24] VITALS: BP 118/62
--- NOTE | 2017-06-24 00:05 | NUR ---
PT PULLED OUT IV LINE. REINSERTED IV TO LEFT FA #22G. GOOD FLUSH AND BLOOD RETURN. PT TOLERATED WELL.
--- NOTE | 2017-06-24 00:23 | NUR ---
CHECKED GT RESIDUAL 5 ML. DUE MEDS GIVEN VIA G-TUBE. PT TOLERATED WELL. ASPIRATION, SEIZURE AND FALL PRECAUTION IN PLACE. Addendum: 06/24/17 at 0025 by Rik Jc RN WRONG TIME
--- NOTE | 2017-06-24 01:30 | NUR ---
GT RESIDUAL 5ML. STARTED NEW BAG OF DIABETISOURCE. PT TOLERATED FEEDING WELL. ASPIRATION, SEIZURE AND FALL PRECAUTION IN PLACE.
--- NOTE | 2017-06-24 04:01 | NUR ---
PT AWAKE. REFUSED TO CHANGE GOWN AND LINEN. DOESN'T WANT TO BE TOUCHED. NO C/O PAIN. TOLERATING FEEDING WELL. ASPIRATION, SEIZURE AND SAFETY PRECAUTION IN PLACE.
--- NOTE | 2017-06-24 05:00 | NUR ---
V/S TAKEN. PT KEEPS ON REMOVING TELE MONITOR. NO C/O PAIN OR DISCOMFORT.
[2017-06-24 05:02] VITALS: BP 141/75
--- NOTE | 2017-06-24 06:00 | NUR ---
PT REFUSED BLOOD SUGAR CHECK. AAOX2. NO DISTRESS NOTED.
[2017-06-24] MEDS: BLOOD GLUCOSE MONITORING 1 DEV DEV FS SCH ×3 (06:04→16:43)
--- NOTE | 2017-06-24 07:05 | NUR ---
ENDORSED PT TO DAY SHIFT NURSE. PT IN STABLE CONDITION
--- NOTE | 2017-06-24 07:06 | NUR ---
PATIENT LYING IN BED TRYING TO GET OUT OF BED CONTINUOUSLY. FALL PREVENTIONS IN PLACE, MITTENS ON PATIENT DUE TO TRYING TO REMOVE IV LINES AND TELE MONITOR BOX. NO DISTRESS NOTED. DENIES ANY PAIN. RESPIRATIONS EVEN, UNLABORED, ON ROOM AIR. AAOX3, INTERMITTENT CONFUSION, SKIN COLOR APPROPRIATE TO ETHNICITY, WARM TO TOUCH. 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 NO S/S OF INFECTION NOTED ON SCABS. IV SITE INTACT, PATENT, AND INFUSING IVF PER ORDERS. GTUBE SITE INTACT, PATENT, AND INFUSING GTUBE FEEDING PER ORDERS. TELE MONITOR OFF PATIENT DUE TO PATIENT KEEP TAKING OF LEDS EVEN WITH MITTENS ON PATIENT. REVIEWED PLAN OF CARE WITH PATIENT. REINFORCEMENT NEEDED. SAFETY MEASURES IN PLACE, CALL LIGHT WITHIN REACH, FALL PREVENTIONS IN PLACE. WILL CONTINUE TO MONITOR.
[2017-06-24 07:49] LABS: BASOPHILS % (AUTO) 0.8 % (0.0-2.0); EOSINOPHILS # (AUTO) 0.2 K/uL (0-0.4); HEMOGLOBIN 11.7 g/dL (12.0-18.0); LYMPHOCYTES # (AUTO) 1.8 K/uL (2.0-11.5); LYMPHOCYTES % (AUTO) 32.6 % (20.5-51.1); MEAN CORPUSCULAR HEMOGLOBIN 34 pg (27-31); MEAN CORPUSCULAR HGB CONC 34 g/dL (33-37); MEAN CORPUSCULAR VOLUME 98.2 fL (80-94); MONOCYTES # (AUTO) 0.4 K/uL (0.8-1.0); MONOCYTES % (AUTO) 7.6 % (1.7-9.3); NEUTROPHILS # (AUTO) 3.1 K/uL (1.8-7.7); PLATELET COUNT (AUTO) 181 K/uL (140-450); RED BLOOD CELL COUNT(AUTO) 3.46 MIL/uL (4.20-6.10); RED CELL DISTRIBUTION WIDTH 12.9 % (11.6-13.7); WHITE BLOOD COUNT (AUTO) 5.5 K/uL (4.8-10.8)
[2017-06-24 07:54] LABS: MAGNESIUM 1.8 mg/dL (1.8-2.4); PHOSPHORUS 2.4 mg/dL (2.5-4.9)
[2017-06-24 08:00] VITALS: BP 138/70
[2017-06-24 08:06] LABS: ANION GAP 13.3 (8-16); CARBON DIOXIDE 30.4 mmol/L (21-32); CREATININE 1.2 mg/dL (0.7-1.3); POTASSIUM 3.7 mmol/L (3.5-5.1)
[2017-06-24] MEDS: DOCUSATE 100 MG/10 ML UDC GT SCH ×2 (09:00→09:52)
[2017-06-24] MEDS: NACL 0.45% 1,000 ML IV SCH (09:15)
--- NOTE | 2017-06-24 09:30 | NUR ---
PATIENT SLEEPING, AROUSABLE BY VOICE. NO DISTRESS NOTED. DENIES ANY PAIN. WILL CONTINUE TO MONITOR.
[2017-06-24] MEDS: DILTIAZEM 60 MG TAB GT SCH (09:52)
[2017-06-24] MEDS: POTASSIUM CHLORIDE 20% 40 MEQ/15 ML UDC GT SCH (09:52)
[2017-06-24] MEDS: QUEtiapine FUMARATE 25 MG TAB GT SCH (09:53)
[2017-06-24] MEDS: FOLIC ACID 1 MG TAB GT SCH (09:53)
[2017-06-24] MEDS: METOPROLOL 25 MG TAB GT SCH (09:53)
[2017-06-24] MEDS: MAGNESIUM OXIDE 400 MG TAB GT SCH (09:53)
[2017-06-24] MEDS: CIPROFLOXACIN 0.3% OP 2.5 ML BTL LEFT EYE SCH ×3 (09:54→16:43)
[2017-06-24] MEDS: POLYVINYL ALCOHOL 1.4% OP 15 ML SOL BOTH EYES SCH ×3 (09:54→16:43)
[2017-06-24] MEDS: CHLORHEXADINE GLUC 2% CLOTH TP SCH (09:55)
--- NOTE | 2017-06-24 10:14 | NUR ---
PATIENT LYING IN BED CONTINUING TO TRY TO GET UP FROM BED. INTERMITTENT CONFUSION NOTED. SCHEDULED MEDICATIONS DUE GIVEN. SAFETY MEASURES IN PLACE, CALL LIGHT WITHIN REACH. FALL PREVENTIONS IN PLACE. WILL CONTINUE TO MONITOR.
[2017-06-24] MEDS ORDERED: BACTO TP (10:52)
[2017-06-24 12:00] VITALS: BP 100/68
[2017-06-24] MEDS ORDERED: POTASSIUM PHOSPHATE 15 MM in NACL 0.9% 250 ML IV SCH (12:00)
--- NOTE | 2017-06-24 12:04 | NUR ---
PATIENT LYING DOWN IN BED WATCHING TV. NO DISTRESS NOTED. DENIES ANY PAIN. FLACC 0. INTERMITTENT CONFUSION NOTED. SCHEDULED MEDICATIONS DUE GIVEN. SAFETY MEASURES IN PLACE, CALL LIGHT WITHIN REACH. WILL CONTINUE TO MONITOR.
[2017-06-24] MEDS: MUPIROCIN 2% OINT 22 GM TUBE TP SCH (12:15)
--- NOTE | 2017-06-24 12:31 | NUR ---
PATIENT TO BE DISCHARGED TO [facility] LATER TODAY. PATIENT MADE AWARE AND VERBALIZED UNDERSTANDING. WILL CONTINUE TO MONITOR.
--- NOTE | 2017-06-24 12:34 | NUR ---
CALLED [facility] AND SPOKE WITH MAICOL OLIVE PITTER, STATED PT IS GOING BACK TO ROOM 30-A. HELP DESK OPERATOR LACIE CALLED FOR [facility] AND PT WILL BE PICKED UP AT 5PM TODAY. [facility] IN CHARGE MADE AWARE.
--- NOTE | 2017-06-24 12:37 | NUR ---
Social Service Note: Per Aruna from [employer] , patient will be picked up at 5pm today, RALPH Aj requested [employer]. I provided Aruna with patient's health insurance information. Addendum: 06/24/17 at 1301 by Anais Cain SS I faxed patient's clinical information to Lory Shafer .
--- NOTE | 2017-06-24 12:45 | NUR ---
PATIENT'S SISTER LA AT BEDSIDE VISITING PATIENT. NOTIFIED LA THAT PATIENT IS TO GO TO [facility] LATER TODAY AROUND 1700. LA VERBALIZED UNDERSTANDING. WILL CONTINUE TO MONITOR.
--- NOTE | 2017-06-24 13:11 | NUR ---
PATIENT LYING IN BED WATCHING TV. NO DISTRESS NOTED. DENIES ANY PAIN. SCHEDULED EYE DROP MEDICATIONS DUE GIVEN. PATIENT AWARE OF GOING BACK TO [facility] LATER TODAY AND EXPRESSED SATISFACTION WITH GOING BACK THERE TODAY. SAFETY MEASURES IN PLACE, CALL LIGHT WITHIN REACH. WILL CONTINUE TO MONITOR.
--- NOTE | 2017-06-24 15:30 | NUR ---
PATIENT LYING DOWN IN BED SLEEPING, AROUSABLE BY VOICE. NO DISTRESS NOTED. DENIES ANY PAIN. CALLED [facility] AND GAVE REPORT TO ALYSSIA YOUNG. ANSWERED ALL OF HECTOR'S QUESTIONS REGARDING PATIENT'S STATUS AND HOSPITAL STAY. REPORTED TO HECTOR THAT PICKUP TIME WAS AROUND 1700 BY [facility]. DISCHARGE INSTRUCTIONS PROVIDED TO PATIENT IN PREFERRED LANGUAGE OF IRISH, FOLLOW-UP VISITS WITH MD, NEW/CHANGED MEDICATION REGIMEN, AND DM II DISEASE PROCESS/MANAGEMENT. PATIENT VERBALIZED UNDERSTANDING. REINFORCEMENT NEEDED. SAFETY MEASURES IN PLACE, CALL LIGHT WITHIN REACH. WILL CONTINUE TO MONITOR.
[2017-06-24 16:00] VITALS: BP 98/68
--- NOTE | 2017-06-24 16:46 | NUR ---
PATIENT LYING IN BED WATCHING TV. NO DISTRESS NOTED. DENIES ANY PAIN. SCHEDULED MEDICATIONS DUE GIVEN. ASSISTED CONVEYOR TECHNICIAN IN GETTING PATIENT PREPARED FOR TRANSFER TO [facility] IN WHICH [facility] IS SCHEDULED FOR 1700. SAFETY MEASURES IN PLACE, CALL LIGHT WITHIN REACH. WILL CONTINUE TO MONITOR.
--- NOTE | 2017-06-24 17:15 | NUR ---
[facility] ARRIVED ON [facility] UNIT READY TO TAKE PATIENT TO [facility]. PATIENT ALL DRESSED UP. ID BANDS REMOVED. IV SITE REMOVED WITH MINIMAL BLOOD AND LUMEN COMPLETELY INTACT. ALL BELONGINGS WITH PATIENT. GAVE REPORT TO TRANSPORTER AND ANSWERED ALL OF THEIR QUESTIONS. PATIENT DISCHARGED AT THIS TIME VIA [facility] TO [facility] IN STABLE CONDITION.
== END 2017-06-24 17:15 | disposition home or self-care (01) | DRG 682 ==
LOC: MED 13:50 → MIC 18:05 → MTU 06-22 02:57
PROVIDERS: ADMIT Preventive Medicine Preventive Medicine/Occupational Environmental Medicine; ATTEND Preventive Medicine Preventive Medicine/Occupational Environmental Medicine
DX: N17.9 Acute kidney failure, unspecified (principal); G93.41 Metabolic encephalopathy; E46 Unspecified protein-calorie malnutrition; E87.0 Hyperosmolality and hypernatremia; H44.002 Unspecified purulent endophthalmitis, left eye; E83.39 Other disorders of phosphorus metabolism; E11.22 Type 2 diabetes mellitus with diabetic chronic kidney disease; E11.40 Type 2 diabetes mellitus with diabetic neuropathy, unspecified; E11.649 Type 2 diabetes mellitus with hypoglycemia without coma; E88.09 Other disorders of plasma-protein metabolism, not elsewhere classified; W18.39XA Other fall on same level, initial encounter; S01.01XA Laceration without foreign body of scalp, initial encounter; D72.829 Elevated white blood cell count, unspecified; F20.9 Schizophrenia, unspecified; G40.909 Epilepsy, unspecified, not intractable, without status epilepticus; I12.9 Hypertensive chronic kidney disease with stage 1 through stage 4 chronic kidney disease, or unspecified chronic kidney disease; E87.6 Hypokalemia; F03.90 Unspecified dementia, unspecified severity, without behavioral disturbance, psychotic disturbance, mood disturbance, and anxiety; S70.00XA Contusion of unspecified hip, initial encounter; N18.9 Chronic kidney disease, unspecified; D64.9 Anemia, unspecified; Z68.24 Body mass index [BMI] 24.0-24.9, adult; Z88.6 Allergy status to analgesic agent; Z88.8 Allergy status to other drugs, medicaments and biological substances; Z79.4 Long term (current) use of insulin; Z86.73 Personal history of transient ischemic attack (TIA), and cerebral infarction without residual deficits; Z86.19 Personal history of other infectious and parasitic diseases; Z93.1 Gastrostomy status; Y93.89 Activity, other specified; Y92.89 Other specified places as the place of occurrence of the external cause; Y99.8 Other external cause status; Z85.818 Personal history of malignant neoplasm of other sites of lip, oral cavity, and pharynx; Z22.322 Carrier or suspected carrier of Methicillin resistant Staphylococcus aureus; Z79.899 Other long term (current) drug therapy; S70.02XA Contusion of left hip, initial encounter; S70.01XA Contusion of right hip, initial encounter; K22.70 Barrett's esophagus without dysplasia
CPT/HCPCS: 36415; 70450; 71045; 74241; 80048; 80053; 82550; 82553; 82948; 83735; 84100; 84484; 85025; 87081; 93005; C1758; G0480; G0482; J1610; J1815; J3480; J7030; Q0092